=== PATIENT | female | born 1945 | race Caucasian/White ===

== ENCOUNTER → 2017-09-01 | Outpatient (CLI) | payer MEDICARE ==
--- NOTE | 2017-09-02 10:36 | RADIOLOGY REPORT (SQ) ---
EXAM DESCRIPTION: PET CT SKULL/THIGH COMPLETED DATE/TIME: 09/01/2017 9:03 pm REASON FOR STUDY: MALIGNANT NEOPLASM OF SIGMOID COLON C18.7 MALIGNANT NEOPLASM OF SIGMOID COLON COMPARISON: None. RADIONUCLIDE AND DOSE: 10.0 mCi F18 FDG The route of agent administration: Intravenous FASTING BLOOD SUGAR: 92 mg/dl CONTRAST TYPE AND DOSE: No CT contrast given. TECHNIQUE: Blood glucose level was verified. Above dose of FDG was injected intravenously. 2-D seg mented attenuation correction images were obtained from the base of the skull to the midthighs. Nonc ontrast CT images were obtained for attenuation correction and fusion with emission images. CT image s were performed without oral or intravenous contrast and are not sensitive for parenchymal lesions. A series of overlapping emission PET images were obtained. Images reviewed and manipulated at [employer] work station by the radiologist. Images stored on PACS. LIMITATIONS: None. FINDINGS: HEAD AND NECK: No areas of abnormal metabolic activity in the soft tissues of the head and neck. CHEST: No areas of abnormal metabolic activity in the chest. ABDOMEN AND PELVIS: Left adrenal gland enlargement, measuring 2.2 x 2.6 cm. Average Hounsfield units -6. No abnormal activity (mean SUV 1.67). Focal nodular area of activity in the lumen of the gallb ladder posteriorly, mean SUV 5.14. No obvious finding on noncontrast CT. Irregular focal circumfere ntial wall thickening of the proximal sigmoid colon in the left lower quadrant. Focal areas of incre ased activity, mean SUV 8.68 and 8.5. PROXIMAL LOWER EXTREMITIES: No areas of abnormal metabolic activity in the soft tissues of the lower extremities. BONES: No abnormal metabolic activity in the visualized skeleton. ADDITIONAL CT FINDINGS: Nonobstructing calculi in the left kidney. Colonic diverticulosis. No addit ional significant findings on the noncontrast CT images. OTHER: Background hepatic activity mean SUV 2.17. Background blood pool activity mean SUV 1.57. No other significant findings. IMPRESSION: 1. CIRCUMFERENTIAL BOWEL WALL THICKENING INVOLVING PROXIMAL SIGMOID COLON WITH FOCAL AREAS OF INCREAS ED ACTIVITY, MOST CONSISTENT WITH MALIGNANCY, ALTHOUGH DIVERTICULITIS MAY BE POSSIBLE. 2. FOCAL NODULAR AREA OF ACTIVITY IN THE LUMEN OF THE GALLBLADDER. NO OBVIOUS FINDING ON NONCONTRAST CT. RECOMMEND FOLLOW-UP ULTRASOUND OF THE GALLBLADDER. 3. LEFT ADRENAL GLAND ENLARGEMENT WITH LOW-ATTENUATION AND NO ABNORMAL ACTIVITY, PROBABLY AN ADRENAL ADENOMA. 4. NO OTHER SIGNIFICANT FINDINGS ON PET IMAGING. INCIDENTAL CT FINDINGS ABOVE. TECHNICAL DOCUMENTATION: JOB ID: [id number] [employer]- All Rights Reserved Reading location - IP/workstation name: [email or web address] TECHNICIAN-[email or web address]
== END ==
LOC: RAD 17:58
PROVIDERS: ATTEND Physician Assistant
DX: C18.7 Malignant neoplasm of sigmoid colon (principal); E27.8 Other specified disorders of adrenal gland
CPT/HCPCS: 78815; A9552

== ENCOUNTER 2017-09-18 01:05 | Inpatient (IN) | payer MEDICARE ==
[2017-09-18] MEDS ORDERED: IPRATROPIUM/ALBUTEROL 0.5-2.5 MG/3 ML AMPUL NEB ONE ×2 (01:39→16:11)
--- NOTE | 2017-09-18 01:39 | ER Document Report ---
ED GI Bleed / Rectal Pain - General Mode of Arrival: Medic Information source: Patient TRAVEL OUTSIDE OF THE [place] IN LAST 30 DAYS: No <ANJUM NDIAYE - Last Filed: 09/18/17 02:17> <GUERITA LAWTON - Last Filed: 09/18/17 03:46> - General Chief Complaint: Rectal Bleeding Stated Complaint: RECTAL BLEEDING Time Seen by Provider: 09/18/17 01:24 Notes: Patient is a 72 year old female with COPD, HTN, arthritis and chronic back pain presents to the emergency department complaining of bloody stools onset prior to arrival to the emergency department. Patient states she had constant diarrhea for approximately 1 week and went to her primary care for outpatient CT scan. CT scan showed the patient had colon cancer and she was sent to the emergency department on September 01, 2017 for a PET scan. 2 weeks ago, patient was seen by Dr. Herrera for a colonoscopy where 9 polyps were removed. Patient states she has been feeling generally weak with an decreased appetite since her colonoscopy and today she noted bright red blood with clots in her stool so she proceeded to call EMS. At bedside patient states she still feels weak and has a little suprapubic abdominal pain. EMS states patient had a blood pressure of 85/69 and proceeded to give 1g of TXA and iv fluids after calling the ED. (ANJUM NDIAYE) Past Medical History - General Information source: Patient - Social History Smoking Status: Current Every Day Smoker Cigarette use (# per day): Yes Chew tobacco use (# tins/day): No Smoking Education Provided: No Frequency of alcohol use: Occasional Drug Abuse: None Family History: Reviewed & Not Pertinent - Past Medical History Cardiac Medical History: Reports: Hx Hypertension Pulmonary Medical History: Reports: Hx COPD <ANJUM NDIAYE - Last Filed: 09/18/17 02:17> Review of Systems - Review of Systems Constitutional: See HPI, Weakness EENT: No symptoms reported Cardiovascular: No symptoms reported Respiratory: No symptoms reported Gastrointestinal: See HPI, Abdominal pain, Poor appetite, Rectal bleeding Genitourinary: No symptoms reported Female Genitourinary: No symptoms reported Musculoskeletal: No symptoms reported Skin: No symptoms reported Hematologic/Lymphatic: No symptoms reported Neurological/Psychological: No symptoms reported -: Yes All other systems reviewed and negative <ANJUM NDIAYE - Last Filed: 09/18/17 02:17> Physical Exam - General General appearance: Alert, Other - Cachetic In distress: None - HEENT Head: Normocephalic, Atraumatic Eyes: Normal Conjunctiva: Normal Extraocular movements intact: Yes Neck: Normal - Respiratory Respiratory status: No respiratory distress Chest status: Nontender Breath sounds: Rhonchi, Wheezing Chest palpation: Normal - Cardiovascular Rhythm: Regular Heart sounds: Normal auscultation Murmur: No Friction rub: No Gallop: None auscultated - Abdominal Inspection: Normal Distension: No distension Bowel sounds: Normal Tenderness: Tender - Suprapubic Organomegaly: No organomegaly - Rectal Tenderness: No Stool: Other - Maroon appearing blood - Back Back: Normal - Extremities General upper extremity: Normal ROM General lower extremity: Normal ROM - Neurological Neuro grossly intact: Yes Cognition: Normal Orientation: AAOx4 [place] Coma Scale Eye Opening: Spontaneous [place] Coma Scale Verbal: Oriented Evangelina Coma Scale Motor: Obeys Commands [place] Coma Scale Total: 15 Speech: Normal - Psychological Associated symptoms: Normal affect, Normal mood - Skin Skin Temperature: Warm Skin Moisture: Dry Skin Color: Normal <ANJUM NDIAYE - Last Filed: 09/18/17 02:17> - Vital signs Vitals: Temp Pulse Resp BP Pulse Ox 97.6 F 90 20 101/62 97 09/18/17 01:05 09/18/17 01:05 09/18/17 01:05 09/18/17 01:05 09/18/17 01:05 Course - Laboratory Result Diagrams: 09/18/17 01:40 09/18/17 01:40 <SENTHILANJUM - Last Filed: 09/18/17 02:17> - Laboratory Result Diagrams: 09/18/17 01:40 09/18/17 01:40 - EKG Interpretation by In EKG shows normal: Sinus rhythm, [place], Intervals, QRS Complexes, ST-T Waves Rate: Normal - 60 Rhythm: NSR - Consults Dr. Rodriguez Time consulted: 02:50 Consulted provider: will come to ER Dr. Cassidy Time consulted: 02:55 Consulted provider: will see as inpatient <GUERITA LAWTON - Last Filed: 09/18/17 03:46> - Vital Signs Vital signs: Temp Pulse Resp BP Pulse Ox 97.6 F 90 20 101/62 97 09/18/17 01:05 09/18/17 01:05 09/18/17 01:05 09/18/17 01:05 09/18/17 01:05 - Laboratory Laboratory results interpreted by me: 09/18/17 09/18/17 09/18/17 01:40 01:40 02:12 WBC 13.4 H Hgb 11.7 L Hct 35.9 L RDW 14.8 H Monocytes % (Manual) 2 L Abs Neuts (Manual) 9.2 H Sodium 148.4 H Chloride 110 H BUN 26 H Est GFR (Non-Af Amer) 54 L Glucose 175 H Calcium 11.1 H Creatine Kinase 22 L Total Protein 6.2 L Urine Protein 100 H Urine Blood LARGE H Critical Care Note - Critical Care Note Total time excluding time spent on procedures (mins): 35 <GUERITA LAWTON - Last Filed: 09/18/17 03:46> Discharge <ANJUM NDIAYE - Last Filed: 09/18/17 02:17> - Discharge Admitting Provider: Hospitalist Unit Admitted: IMCU <GUERITA LAWTON - Last Filed: 09/18/17 03:46> - Discharge Clinical Impression: Rectal bleeding Hypotension Qualifiers: Hypotension type: unspecified hypotension type Qualified Code(s): I95.9 - Hypotension, unspecified Colon cancer Qualifiers: Colon location: sigmoid Qualified Code(s): C18.7 - Malignant neoplasm of sigmoid colon Condition: Fair Disposition: ADMITTED INPATIENT Scribe Attestation: 09/18/17 02:08 I personally performed the services described in the documentation, reviewed and edited the documentation which was dictated to the scribe in my presence, and it accurately records my words and actions. (GUERITA LAWTON) Scribe Documentation - Scribe Written by Kiera:: Kiera Staples, 09/18/2017 02:04 acting as scribe for :: Kennedy <ANJUM NDIAYE - Last Filed: 09/18/17 02:17>
[2017-09-18 02:10] LABS: HEMATOCRIT 35.9 % (36.0-47.0); HEMOGLOBIN 11.7 g/dL (12.0-15.5); INTERNATIONAL RATION (INR) 1.01; MEAN CORPUSCULAR HEMOGLOBIN 27.4 pg (27.0-33.4); MEAN CORPUSCULAR HGB CONC 32.6 g/dL (32.0-36.0); MEAN CORPUSCULAR VOLUME 84 fl (80-97); PLATELET COUNT 440 10^3/uL (150-450); PROTHROMBIN TIME 13.8 SEC (11.4-15.4); RED BLOOD COUNT 4.27 10^6/uL (3.72-5.28); RED CELL DISTRIBUTION WIDTH 14.8 % (11.5-14.0); WHITE BLOOD COUNT 13.4 10^3/uL (4.0-10.5)
[2017-09-18 02:26] LABS: ALANINE AMINOTRANSFERASE 18 U/L (9-52); ALBUMIN 3.6 g/dL (3.5-5.0); ALKALINE PHOSPHATASE 57 U/L (38-126); ANION GAP 10 (5-19); ASPARTATE AMINO TRANSFERASE 16 U/L (14-36); BILIRUBIN,DIRECT 0.2 mg/dL (0.0-0.4); BILIRUBIN,TOTAL 0.2 mg/dL (0.2-1.3); BLOOD UREA NITROGEN 26 mg/dL (7-20); CALCIUM 11.1 mg/dL (8.4-10.2); CARBON DIOXIDE 28 mmol/L (22-30); CHLORIDE 110 mmol/L (98-107); CREATINE KINASE 22 U/L (30-135); GLUCOSE 175 mg/dL (75-110); POTASSIUM 4.7 mmol/L (3.6-5.0); SODIUM 148.4 mmol/L (137-145); TOTAL PROTEIN 6.2 g/dL (6.3-8.2)
[2017-09-18 02:32] LABS: ABSOLUTE LYMPHOCYTES# (MANUAL) 3.6 10^3/uL (0.5-4.7); ABSOLUTE MONOCYTES # (MANUAL) 0.3 10^3/uL (0.1-1.4); ABSOLUTE NEUTROPHILS# (MANUAL) 9.2 10^3/uL (1.7-8.2); BAND NEUTROPHILS % (MANUAL) 3 % (3-5); BASOPHILS % (MANUAL) 0 % (0-2); EOSINOPHILS % (MANUAL) 2 % (0-6); LYMPHOCYTES % (MANUAL) 27 % (13-45); MONOCYTES % (MANUAL) 2 % (3-13); SEGMENTED NEUTROPHILS % (MAN) 66 % (42-78); TOTAL CELLS COUNTED 100
[2017-09-18 02:33] LABS: PLATELET CLUMPS PRESENT; PLATELET COMMENT ADEQUATE
[2017-09-18 02:35] LABS: ANISOCYTOSIS SLIGHT; HYPOCHROMASIA SLIGHT; POIKILOCYTOSIS SLIGHT; STOMATOCYTES SLIGHT
[2017-09-18] MEDS ORDERED: NORMAL SALINE 1000 ML 250 ML IV ONE (03:02)
[2017-09-18 03:35] LABS: AMORPHOUS SEDIMENT,URINE TRACE /HPF; APPEARANCE,URINE CLOUDY; BILIRUBIN,URINE NEGATIVE (NEGATIVE); COLOR,URINE AMBER; GLUCOSE, URINE NEGATIVE (NEGATIVE); KETONES,URINE NEGATIVE (NEGATIVE); LEUKOCYTE ESTERASE,URINE NEGATIVE (NEGATIVE); NITRITE,URINE NEGATIVE (NEGATIVE); PROTEIN,URINE 100 mg/dL (NEGATIVE); UROBILINOGEN,URINE NEGATIVE mg/dL (<2.0)
--- NOTE | 2017-09-18 03:48 | RADIOLOGY REPORT (SQ) ---
EXAM DESCRIPTION: XR CHEST 1 VIEW COMPLETED DATE/TME: 09/18/2017 03:01 CLINICAL HISTORY: 72 years Female, Rectal bleeding, hypotension, COPD COMPARISON: None. NUMBER OF VIEWS/TECHNIQUE: 1/AP FINDINGS: Moderate emphysematous hyperinflation, clear parenchyma, normal cardiac silhouette, atherosclerosis, and intact bony thorax. IMPRESSION: No acute cardiopulmonary findings.
[2017-09-18] MEDS ORDERED: ACETAMINOPHEN 325 MG TABLET PO PRN (04:21)
[2017-09-18] MEDS ORDERED: ONDANSETRON HCL INJ/PF 4 MG/2 ML SDV IV PRN (04:21)
--- NOTE | 2017-09-18 04:35 | PDOC H&P ---
History of Present Illness Admission Date/PCP: 09/18/17 03:20 HITESH TOMLINSON PA-C Patient complains of: Bright red blood per rectum History of Present Illness: KASIA LÓPEZ is a 72 year old female with a past medical history of COPD, DVT, tobacco dependence, hypertension, osteoarthritis, weight loss and recent workup for colon cancer. Patient presents with sudden episode of large-volume bright red blood per rectum receiving TXA by EMS without further bleeding. Denying previous episode, fever chills, abdominal pain constipation or hard stools. In the emergency room she is found to have an unremarkable CBC and referred to the hospitalist for admission. Patient underwent CT abdomen 4 weeks ago concerning for colon cancer followed by PET scan followed by colonoscopy by Dr. Herrera with biopsy and polypectomy. Results are pending, patient has not yet had oncology referral. Continues to complain of mild suprapubic and left lower quadrant pain. She is typed and screened 2 units of packed red blood cells and referred to the hospitalist for admission. Past Medical History Cardiac Medical History: Reports: Hypertension Pulmonary Medical History: Reports: Chronic Obstructive Pulmonary Disease (COPD) Past Surgical History Past Surgical History: Reports: Appendectomy Social History Information Source: Patient Smoking Status: Current Every Day Smoker Cigarettes Packs Per Day: 0.5 Number of Years Smokin Hx Recreational Drug Use: No Drugs: None - Advance Directive Resuscitation Status: Full Code Family History Family History: CAD. denies: Malignancy Parental Family History Reviewed: Yes Children Family History Reviewed: Yes Sibling(s) Family History Reviewed.: Yes Review of Systems Constitutional: PRESENT: anorexia, fatigue, weakness, weight loss. ABSENT: headache(s), night sweats Eyes: ABSENT: visual disturbances Ears: ABSENT: hearing changes Cardiovascular: ABSENT: chest pain, dyspnea on exertion, edema, orthropnea, palpitations Respiratory: PRESENT: cough. ABSENT: dyspnea, hemoptysis, sputum Gastrointestinal: PRESENT: as per HPI, diarrhea. ABSENT: constipation Genitourinary: ABSENT: dysuria, hematuria Musculoskeletal: ABSENT: joint swelling Integumentary: ABSENT: rash, wounds Neurological: ABSENT: abnormal gait, abnormal speech, confusion, dizziness, focal weakness, syncope Psychiatric: ABSENT: anxiety, depression, homidical ideation, suicidal ideation Endocrine: ABSENT: cold intolerance, heat intolerance, polydipsia, polyuria Hematologic/Lymphatic: ABSENT: easy bleeding, easy bruising Physical Exam Vital Signs: Temp Pulse Resp BP Pulse Ox 97.6 F 90 32 H 106/66 97 09/18/17 01:05 09/18/17 01:05 09/18/17 04:00 09/18/17 04:00 09/18/17 04:00 General appearance: PRESENT: cooperative, mild distress, thin. ABSENT: morbidly obese Head exam: PRESENT: atraumatic, normocephalic Eye exam: PRESENT: conjunctiva pink, EOMI, PERRLA. ABSENT: scleral icterus Ear exam: PRESENT: normal external ear exam Mouth exam: PRESENT: moist, tongue midline Neck exam: ABSENT: carotid bruit, JVD, lymphadenopathy, thyromegaly Respiratory exam: PRESENT: clear to auscultation mirna. ABSENT: rales, rhonchi, wheezes Cardiovascular exam: PRESENT: RRR. ABSENT: diastolic murmur, rubs, systolic murmur Pulses: PRESENT: normal dorsalis pedis pul Vascular exam: PRESENT: normal capillary refill GI/Abdominal exam: PRESENT: hypoactive bowel sounds, soft, tenderness. ABSENT: distended, firm Rectal exam: PRESENT: deferred Extremities exam: PRESENT: full ROM. ABSENT: calf tenderness, clubbing, pedal edema Neurological exam: PRESENT: alert, awake, oriented to person, oriented to place , oriented to time, oriented to situation, CN II-XII grossly intact. ABSENT: motor sensory deficit Psychiatric exam: PRESENT: appropriate affect, normal mood. ABSENT: homicidal ideation, suicidal ideation Skin exam: PRESENT: dry, intact, warm. ABSENT: cyanosis, rash Results Impressions: Chest X-Ray 09/18/17 03:01 IMPRESSION: No acute cardiopulmonary findings. Assessment & Plan - Diagnosis (1) Colon cancer Qualifiers: Colon location: sigmoid Qualified Code(s): C18.7 - Malignant neoplasm of sigmoid colon Is this a current diagnosis for this admission?: Yes Plan: Obtain biopsy results from Dr. lopez's office, oncology consult (2) Hypotension Qualifiers: Hypotension type: unspecified hypotension type Qualified Code(s): I95.9 - Hypotension, unspecified Is this a current diagnosis for this admission?: Yes Plan: IV fluid challenge, reevaluate chemistry. (3) Rectal bleeding Is this a current diagnosis for this admission?: Yes Plan: Avoid TXA given history of DVT. Follow-up CBC, transfuse packed red blood cells as needed hemoglobin less than 8 - Time Time Spent: 50 to 70 Minutes - Inpatient Certification Medical Necessity: Need Close Monitoring Due to Risk of Patient Decompensation
[2017-09-18] MEDS: HEPARIN SOD (PORCINE) 5,000 UNIT/ML 1 ML SYRINGE SUBCUT SCH ×2 (06:00→14:29)
--- NOTE | 2017-09-18 07:09 | PDOC CONSULTATION ---
Consultation Consult Date: 09/18/17 Attending physician:: JONELLE HDEZ Consult reason:: possible colon cancer History of Present Illness Admission Date/PCP: 09/18/17 03:20 HITESH TOMLINSON PA-C History of Present Illness: KASIA LÓPEZ is a 72 year old female Patient of Dr Herrera, presented to ED with possible bright red blood per rectum noted blood in the stools. had recent colonoscopy where it might have been noted that she has sigmoid lesion biopsies were obtained but not able to get any confirmed pathology she was sent for possible CT-PET scan patient had not been referred to Oncology as yet also had polypectomy done during that colonoscopy saw some bright red blood per rectum patient's Hgb is stable and vitals are stable as well admitted by Hospitalist service Dr Herrera continues to have privileges at [facility], but ED did not contact him I do not cover for him. get previous work up that has been performed patient's H/H will need to be monitored will get results from previous colonoscopy, PET scan etc go from there, will monitor for possible post polypectomy bleeding Past Medical History Cardiac Medical History: Reports: Hypertension Pulmonary Medical History: Reports: Chronic Obstructive Pulmonary Disease (COPD) Past Surgical History Past Surgical History: Reports: Appendectomy Social History Smoking Status: Current Every Day Smoker Cigarettes Packs Per Day: 0.5 Number of Years Smokin Hx Recreational Drug Use: No Drugs: None - Advance Directive Resuscitation Status: Full Code Family History Family History: CAD. denies: Malignancy Parental Family History Reviewed: Yes Children Family History Reviewed: Unknown Sibling(s) Family History Reviewed.: Unknown Medication/Allergy Allergies/Adverse Reactions: No Known Allergies Allergy (Unverified 09/18/17 06:11) Review of Systems Constitutional: ABSENT: fever(s), headache(s), night sweats, weakness Eyes: ABSENT: visual disturbances Ears: ABSENT: hearing changes Nose, Mouth, and Throat: ABSENT: mouth pain, sore throat Cardiovascular: ABSENT: edema, orthropnea Respiratory: ABSENT: dyspnea, hemoptysis Gastrointestinal: PRESENT: hematochezia. ABSENT: dysphagia, hematemesis Genitourinary: ABSENT: dysuria, hematuria Musculoskeletal: ABSENT: deformity, joint swelling Integumentary: ABSENT: pruritus Neurological: ABSENT: syncope, tingling, tremor(s), vertigo Endocrine: ABSENT: polydipsia, polyphagia, polyuria Hematologic/Lymphatic: ABSENT: easy bruising Physical Exam Vital Signs: Temp Pulse Resp BP Pulse Ox 97.6 F 90 18 103/62 97 09/18/17 01:05 09/18/17 01:05 09/18/17 06:30 09/18/17 06:30 09/18/17 06:30 General appearance: PRESENT: no acute distress, well-developed Head exam: PRESENT: atraumatic, normocephalic Eye exam: PRESENT: EOMI, PERRLA. ABSENT: nystagmus, periorbital swelling, scleral icterus Mouth exam: PRESENT: moist, neck supple Throat exam: ABSENT: tonsillar exudate, tonsillogmegaly Neck exam: ABSENT: meningismus, tenderness, thyromegaly Respiratory exam: PRESENT: symmetrical, unlabored. ABSENT: tachypnea, wheezes Cardiovascular exam: PRESENT: RRR, +S1, +S2 GI/Abdominal exam: PRESENT: soft. ABSENT: rebound, rigid, tenderness Extremities exam: ABSENT: joint swelling Musculoskeletal exam: PRESENT: full ROM Neurological exam: PRESENT: alert, awake, oriented to time, oriented to situation, CN II-XII grossly intact Focused psych exam: ABSENT: restlessness Skin exam: PRESENT: normal color. ABSENT: mottled, pallor, urticaria, vesicles Results Impressions: Chest X-Ray 09/18/17 03:01 IMPRESSION: No acute cardiopulmonary findings. Assessment & Plan - Diagnosis (1) Colon cancer Qualifiers: Colon location: sigmoid Qualified Code(s): C18.7 - Malignant neoplasm of sigmoid colon Is this a current diagnosis for this admission?: Yes Plan: will need to get recent biopsy report and pathology get recent scan results as well refer Oncology and may need surgery as well (2) Rectal bleeding Is this a current diagnosis for this admission?: Yes Plan: could be from hemorrhoids watch for post polypectomy bleeding as well monitor H/H will follow while at [facility], will need outpatient follow up with Dr Herrera - Time Time Spent: 50 to 70 Minutes
[2017-09-18 07:33] LABS: HEMATOCRIT 29.3 % (36.0-47.0); MEAN CORPUSCULAR HEMOGLOBIN 28.5 pg (27.0-33.4); MEAN CORPUSCULAR HGB CONC 34.2 g/dL (32.0-36.0); MEAN CORPUSCULAR VOLUME 84 fl (80-97); PLATELET COUNT 350 10^3/uL (150-450); RED BLOOD COUNT 3.51 10^6/uL (3.72-5.28); RED CELL DISTRIBUTION WIDTH 14.6 % (11.5-14.0); WHITE BLOOD COUNT 8.1 10^3/uL (4.0-10.5)
[2017-09-18 07:51] LABS: ALANINE AMINOTRANSFERASE 15 U/L (9-52); ALBUMIN 2.8 g/dL (3.5-5.0); ALKALINE PHOSPHATASE 47 U/L (38-126); ANION GAP 7 (5-19); ASPARTATE AMINO TRANSFERASE 12 U/L (14-36); BILIRUBIN,DIRECT 0.2 mg/dL (0.0-0.4); BILIRUBIN,TOTAL 0.2 mg/dL (0.2-1.3); BLOOD UREA NITROGEN 27 mg/dL (7-20); CALCIUM 10.4 mg/dL (8.4-10.2); CARBON DIOXIDE 27 mmol/L (22-30); CHLORIDE 112 mmol/L (98-107); GLUCOSE 124 mg/dL (75-110); POTASSIUM 4.8 mmol/L (3.6-5.0); SODIUM 146.4 mmol/L (137-145); TOTAL PROTEIN 5.1 g/dL (6.3-8.2)
[2017-09-18] MEDS: IPRATROPIUM/ALBUTEROL 0.5-2.5 MG/3 ML AMPUL NEB SCH ×3 (08:02→23:46)
--- NOTE | 2017-09-18 09:40 | EKG REPORT ---
SEVERITY:- NORMAL ECG - SINUS RHYTHM : Confirmed by: Bharti Saba 18-Sep-2017 09:39:33
[2017-09-18] MEDS: NORMAL SALINE 1000 ML 1,000 ML IV SCH ×3 (10:00→21:07)
[2017-09-18 12:04] LABS: HEMATOCRIT 26.2 % (36.0-47.0); HEMOGLOBIN 8.9 g/dL (12.0-15.5); MEAN CORPUSCULAR HEMOGLOBIN 28.5 pg (27.0-33.4); MEAN CORPUSCULAR VOLUME 84 fl (80-97); PLATELET COUNT 333 10^3/uL (150-450); RED BLOOD COUNT 3.12 10^6/uL (3.72-5.28); RED CELL DISTRIBUTION WIDTH 14.7 % (11.5-14.0); WHITE BLOOD COUNT 6.5 10^3/uL (4.0-10.5)
[2017-09-18] MEDS ORDERED: POLYETHYLENE GLYCOL 3350 POWDER 17 GM/1 PACKET PO ONE (12:53)
--- NOTE | 2017-09-18 13:00 | Progress Note ---
Provider Note Provider Note: Hgb noted to have decreased I had spoken to the patient, since may be continuing to have bleeding she had her colonoscopy about 2 weeks ago, so post polypectomy bleeding is less likely from her history, it could be diverticular vs even upper GI since she was symptomatic on presentation may be ablating, but would benefit from evaluation will schedule EGD and colonoscopy with Propofol sedation prep instructions are written
[2017-09-18] MEDS ORDERED: TIZANIDINE HCL 4 MG TABLET PO PRN (13:01)
[2017-09-18] MEDS: GABAPENTIN 300 MG CAPSULE PO SCH ×2 (14:43→21:08)
[2017-09-18 16:26] LABS: HEMATOCRIT 25.7 % (36.0-47.0); HEMOGLOBIN 8.7 g/dL (12.0-15.5); MEAN CORPUSCULAR HGB CONC 33.6 g/dL (32.0-36.0); MEAN CORPUSCULAR VOLUME 83 fl (80-97); PLATELET COUNT 327 10^3/uL (150-450); RED CELL DISTRIBUTION WIDTH 14.6 % (11.5-14.0); WHITE BLOOD COUNT 6.8 10^3/uL (4.0-10.5)
[2017-09-18] MEDS ORDERED: PEG 3350/NA SULF,BICARB,CL/KCL 4000 ML PO ONE (17:00)
[2017-09-18] MEDS: FLUTICASONE/SALMETEROL DISKUS 250-50 MCG/DOSE IH SCH (17:13)
--- NOTE | 2017-09-18 22:16 | Progress Note ---
Provider Note Provider Note: The patient is a 72 year old female with PMH significant for COPD, DVT, tobacco dependence, hypertension, osteoarthritis, weight loss and recent workup for colon cancer (pathology pending) who was admitted by the Senior Analyst for an episode of large-volume bright red blood per rectum with suprapubic and LLQ abdominal pain. The patient's chart, labs, and plan were reviewed; agree with plan of care as initiated. 1- Colon CA: Records have been requested regarding recent colonoscopy/ polypectomy and pathology results. Oncology has been consulted; appreciate their assistance. 2- Hypotension: Possibly related to intravascular volume loss (although Hgb as nml at time of admission) or vasovagal response. Provided IV fluids with appropriate response. Will continue to monitor fluid volume status and correct as necessary. Home-dosed antihypertensives are resumed. 3- Rectal blooding: Monitor serial CBC. Patient has been typed and screened; will transfuse as necessary for Hgb <8. Holding aspirin and Heparin prophylaxis. GI has been consulted; appreciate their assistance.
[2017-09-18 22:32] LABS: HEMATOCRIT 26.2 % (36.0-47.0); MEAN CORPUSCULAR HEMOGLOBIN 28.7 pg (27.0-33.4); MEAN CORPUSCULAR HGB CONC 34.2 g/dL (32.0-36.0); MEAN CORPUSCULAR VOLUME 84 fl (80-97); PLATELET COUNT 335 10^3/uL (150-450); RED BLOOD COUNT 3.13 10^6/uL (3.72-5.28); RED CELL DISTRIBUTION WIDTH 14.7 % (11.5-14.0); WHITE BLOOD COUNT 6.9 10^3/uL (4.0-10.5)
[2017-09-19 05:15] LABS: HEMATOCRIT 23.5 % (36.0-47.0); MEAN CORPUSCULAR HEMOGLOBIN 28.1 pg (27.0-33.4); MEAN CORPUSCULAR HGB CONC 33.8 g/dL (32.0-36.0); MEAN CORPUSCULAR VOLUME 83 fl (80-97); PLATELET COUNT 301 10^3/uL (150-450); RED BLOOD COUNT 2.83 10^6/uL (3.72-5.28); RED CELL DISTRIBUTION WIDTH 14.6 % (11.5-14.0); WHITE BLOOD COUNT 5.4 10^3/uL (4.0-10.5)
[2017-09-19] MEDS: GABAPENTIN 300 MG CAPSULE PO SCH ×3 (05:22→21:48)
[2017-09-19 06:14] LABS: ABSOLUTE LYMPHOCYTES# (MANUAL) 2.3 10^3/uL (0.5-4.7); ABSOLUTE MONOCYTES # (MANUAL) 0.4 10^3/uL (0.1-1.4); ABSOLUTE NEUTROPHILS# (MANUAL) 2.3 10^3/uL (1.7-8.2); BASOPHILS % (MANUAL) 4 % (0-2); EOSINOPHILS % (MANUAL) 5 % (0-6); LYMPHOCYTES % (MANUAL) 42 % (13-45); MONOCYTES % (MANUAL) 7 % (3-13); SEGMENTED NEUTROPHILS % (MAN) 41 % (42-78); TOTAL CELLS COUNTED 100
[2017-09-19 06:18] LABS: ANISOCYTOSIS SLIGHT; HYPOCHROMASIA 1+; PLATELET COMMENT ADEQUATE
[2017-09-19 06:20] LABS: MYELOCYTES % (MANUAL) 1 % (0)
[2017-09-19] MEDS: IPRATROPIUM/ALBUTEROL 0.5-2.5 MG/3 ML AMPUL NEB SCH ×2 (08:23→16:20)
[2017-09-19] MEDS: FLUTICASONE/SALMETEROL DISKUS 250-50 MCG/DOSE IH SCH ×2 (09:27→17:23)
[2017-09-19 09:34] LABS: PATH REVIEW PATHOLOGIST REVIEWED
[2017-09-19] MEDS ORDERED: AMLODIPINE BESYLATE 10 MG TABLET PO SCH (10:00)
[2017-09-19] MEDS: AMLODIPINE BESYLATE 5 MG TABLET PO SCH (10:52)
[2017-09-19] MEDS ORDERED: MIDAZOLAM 2 MG/2 ML INJ ONE (13:54)
[2017-09-19] MEDS ORDERED: PROPOFOL INJ 200 MG/20 ML VIAL IV ONE (13:54)
[2017-09-19] MEDS ORDERED: FENTANYL CITRATE INJ/PF 100 MCG/2 ML AMPUL IV PRN ×3 (14:16)
--- NOTE | 2017-09-19 14:51 | Operative Report ---
Operative Report DATE OF SURGERY: 09/19/17 Operative Report: The risks, benefits and alternatives of the procedure including risks of bleeding, perforation requiring surgery are explained to the patient in detail and informed consent is obtained. The patient is placed in a left, lateral decubital position. She is taken to the operating room. Timeout was called. Propofol medications administered. A rectal examination is done which did not reveal any masses, tears or fissures. An Olympus videoscope was inserted the patient's rectum. The scope was then carefully advanced all the way to the cecum. The cecum was identified by the usual anatomical landmarks including the ileocecal valve as well as the appendiceal office. Photodocumentation is obtained. The scope was then sequentially pulled back via the various segments of the colon including the ascending colon, hepatic flexure, transverse colon, splenic flexure, descending colon and finally into the rectosigmoid portions of the colon. Retroflexion maneuvers performed. Of note the patient's colon is hard to insufflate combination of carbon dioxide along with a insufflation was used. The risks benefits and alternatives of the procedure explained to the patient in detail and informed consent is obtained.A GIF Olympus video scope was inserted into the patient's mouth and hypopharynx ,the esophagus is identified intubated and insufflated, the scope was then advanced through the esophagus stomach and duodenum. retroflexion maneuver is done .the esophagus stomach and first and second portions of the duodenum examined PREOPERATIVE DIAGNOSIS: GI bleeding. Patient had had a colonoscopy approximately a month ago. She was diagnosed with some kind of sigmoid lesion. POSTOPERATIVE DIAGNOSIS: Ulcerated area in the descending colon believed to be a post polypectomy site status post Endo Clip placement. Diverticulosis. Severe sigmoid diverticulosis. Large pedunculated polyp, the area is tattooed. Internal hemorrhoids. Esophageal papilloma. Gastritis status post biopsy. Hiatal hernia. No further upper or lower GI bleeding noted OPERATION: Colonoscopy with Endo Clip placement to control hemorrhage. Colonoscopy with submucosal Nichole ink injection. EGD with biopsy SURGEON: JONELLE HDEZ ANESTHESIA: LMAC TISSUE REMOVED OR ALTERED: As noted above. COMPLICATIONS: None. ESTIMATED BLOOD LOSS: None. INTRAOPERATIVE FINDINGS: As noted above. PROCEDURE: Patient tolerated procedure well. No immediate postprocedure complications are noted. Patient sent back to her room in good condition. We will wait on biopsies. I will call the hospitalist advisor findings. Further recommendations to follow.
[2017-09-19 16:51] LABS: HEMATOCRIT 25.2 % (36.0-47.0); HEMOGLOBIN 8.5 g/dL (12.0-15.5); MEAN CORPUSCULAR HGB CONC 33.6 g/dL (32.0-36.0); MEAN CORPUSCULAR VOLUME 83 fl (80-97); PLATELET COUNT 328 10^3/uL (150-450); RED BLOOD COUNT 3.02 10^6/uL (3.72-5.28); RED CELL DISTRIBUTION WIDTH 14.5 % (11.5-14.0); WHITE BLOOD COUNT 4.9 10^3/uL (4.0-10.5)
[2017-09-19] MEDS ORDERED: DEXTROSE 50%-WATER 25 GM/50 ML DISP.SYRIN IV PRN ×2 (17:03)
[2017-09-19] MEDS ORDERED: DEXTROSE 40% GEL 15 GM TUBE PO PRN ×2 (17:03)
[2017-09-19] MEDS ORDERED: GLUCAGON,HUMAN RECOMB 1 MG INJ SUBCUT PRN (17:03)
[2017-09-19] MEDS ORDERED: NEOMYCIN SULFATE 500 MG TABLET PO ONE (17:15)
[2017-09-19] MEDS ORDERED: ERYTHROMYCIN BASE 250 MG TABLET PO ONE (17:15)
--- NOTE | 2017-09-19 17:16 | Progress Note ---
Provider Note Provider Note: patient underwent colonoscopy patient had Propofol sedation Findings: post polypectomy bleeding site noted, this had placement of Endoclip the area of the sigmoid was noted. on her previous colonoscopy about 1 month ago , it was noted that there could be have been a malignancy however, it appear to be more of a large pedunculated, large based polyp that is present It cannot be removed via colonoscopy I did tattoo the site Surgery has been called spoke with surgery the sigmoid are is hard to insufflate and has significant diveritulosis as well the lesion appears to be at about 20 cm
--- NOTE | 2017-09-19 17:33 | PDOC CONSULTATION ---
Consultation Consult Date: 09/19/17 Consult reason:: sigmoid polyp History of Present Illness Admission Date/PCP: 09/18/17 03:20 HITESH TOMLINSON PA-C History of Present Illness: KASIA LÓPEZ is a 72 year old female who has undergone a repeat colonoscopy today with identification of a large sigmoid polyp at @ 20 cm from the anal verge, this was too large to be endoscopically removed. This polyp was tatooed according to the Endoscopist today. In addition, an old polypectomy site in the descending colon was found to be bleeding and this was controlled with a clip. According to the records and the patient's daughter in law, the patient underwent an initial endoscopy on 09/09/17 done at [facility] on . Nine small polyps ranging from 9 to 16 mm were removed from ascending, hepatic flexure, transverse, and sigmoid colon. The pathology report is significant for: ascending colon significant tubular adenoma negaive for dysplasia or malignancy; hepatic flexure significant for colon mucosa with severe cautery damage; transverse colon significant for tubulovillous adenoma negative for high grade dysplasia; sigmoid colon tubular adenoma negative for neoplasia or dysplasia. Past Medical History Cardiac Medical History: Reports: Hypertension Pulmonary Medical History: Reports: Chronic Obstructive Pulmonary Disease (COPD) Past Surgical History Past Surgical History: Reports: Appendectomy Social History Smoking Status: Current Every Day Smoker Cigarettes Packs Per Day: 0.5 Number of Years Smokin Frequency of Alcohol Use: None Hx Recreational Drug Use: No Drugs: None Hx Prescription Drug Abuse: No - Advance Directive Resuscitation Status: Full Code Family History Family History: CAD. denies: Malignancy Parental Family History Reviewed: No Children Family History Reviewed: No Sibling(s) Family History Reviewed.: No Medication/Allergy Home Medications: Amlodipine Besylate [Norvasc 10 mg Tablet] 5 mg PO DAILY 09/18/17 Aspirin [Aspirin EC] 81 mg PO DAILY 09/18/17 Celecoxib [Celebrex 200 mg Capsule] 200 mg PO Q12 09/18/17 Fluticasone/Salmeterol [Advair 250-50 Diskus 28 dose] 1 inh IH Q12H 09/18/17 Gabapentin [Neurontin] 600 mg PO TID 09/18/17 Multivit/Folic Acid/Vit K1 [One-A-Day Women's 50 Plus Tab] 1 each PO DAILY 09/18 Tizanidine HCl [Zanaflex 4 Mg Tablet] 4 mg PO TIDP PRN 09/18/17 Allergies/Adverse Reactions: No Known Allergies Allergy (Unverified 09/18/17 10:34) Physical Exam Vital Signs: Temp Pulse Resp BP Pulse Ox 97.8 F 70 20 140/65 H 100 09/19/17 15:44 09/19/17 15:44 09/19/17 15:44 09/19/17 15:44 09/19/17 15:44 Intake & Output 09/18/17 09/19/17 09/20/17 06:59 06:59 06:59 Intake Total 2250 5800 Balance 2250 5800 Weight 48.8 kg General appearance: PRESENT: no acute distress, cooperative, thin Head exam: PRESENT: atraumatic Mouth exam: PRESENT: neck supple Respiratory exam: PRESENT: clear to auscultation mirna Cardiovascular exam: PRESENT: RRR GI/Abdominal exam: PRESENT: normal bowel sounds, soft, other - old lowser midline and right paramedian scars Extremities exam: PRESENT: full ROM Musculoskeletal exam: PRESENT: full ROM Neurological exam: PRESENT: alert, oriented to time, oriented to situation Skin exam: PRESENT: warm Results Laboratory Results: 09/19/17 04:05 09/18/17 07:00 09/18/17 09/19/17 22:25 04:05 WBC 6.9 5.4 RBC 3.13 L 2.83 L Hgb 9.0 L 8.0 L Hct 26.2 L 23.5 L MCV 84 83 MCH 28.7 28.1 MCHC 34.2 33.8 RDW 14.7 H 14.6 H Plt Count 335 301 Seg Neutrophils % Not Reportable Lymphocytes % Not Reportable Monocytes % Not Reportable Eosinophils % Not Reportable Basophils % Not Reportable Absolute Neutrophils Not Reportable Absolute Lymphocytes Not Reportable Absolute Monocytes Not Reportable Absolute Eosinophils Not Reportable Absolute Basophils Not Reportable Impressions: Chest X-Ray 09/18/17 03:01 IMPRESSION: No acute cardiopulmonary findings. Assessment & Plan - Diagnosis (1) Colon polyps Qualifiers: Colon polyp type: unspecified Colon location: sigmoid Qualified Code(s): D12.5 - Benign neoplasm of sigmoid colon Is this a current diagnosis for this admission?: Yes (2) Anemia Qualifiers: Iron deficiency anemia type: chronic blood loss Is this a current diagnosis for this admission?: Yes (3) Rectal bleeding Is this a current diagnosis for this admission?: Yes - Plan Summary Plan Summary: A/ S/P colonoscopy with identification of large sigmoid polyp at 20 cm from anal verge today Severe anemia (H/H 11/21) secondary to hematochetia Hematochetia source identified at today's colonoscopy and treated with clipping : it is a sigmoid polypectomy site from previous colonoscopy Previous colonoscopy done at different facility on 09/09/17 with identification of several polyps (ranging from tubular adenoma to tubulovilvous adenoma) completely removed from several segments of the colon (ascending, transverse, and sigmoid colon) P/ Repeat colonoscopy to confirm location of sigmoid polyp tomorrow According to the location of the polyp, possible low anterior resection or left hemicolectomy Procedure, risks, benefits discussed with patient and her daughter in law, their questions were answered, and she decided to proceed. 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
[2017-09-19] MEDS ORDERED: NORMAL SALINE 1000 ML 1,000 ML IV PRN (17:37)
[2017-09-19] MEDS ORDERED: NICOTINE 7 MG/24 HR PATCH.TD24 TD ONE (17:51)
[2017-09-19] MEDS ORDERED: PEG 3350/NA SULF,BICARB,CL/KCL 4000 ML PO ONE (18:00)
[2017-09-19] MEDS ORDERED: IPRATROPIUM/ALBUTEROL 0.5-2.5 MG/3 ML AMPUL NEB PRN (18:18)
[2017-09-19] MEDS: NEOMYCIN SULFATE 500 MG TABLET PO SCH ×2 (18:21→23:09)
--- NOTE | 2017-09-19 18:21 | PDOC PROGRESS REPORT ---
Subjective Progress Note for:: 09/19/17 Subjective:: The patient is a 72-year-old female with a past medical history significant for COPD, DVT, tobacco dependence, hypertension, osteoarthritis, weight loss and recent workup for colon cancer involving outpatient colonoscopy and polypectomy of several colon polyps who was admitted on 09/18/17 for episode of large-volume bright red blood per rectum, left lower quadrant abdominal pain, and anemia. The patient is seen on rounds this morning with her family present. She is currently n.p.o. in preparation for EGD and colonoscopy. She reports that her pain has resolved but she continues to have bright red blood per rectum. She was only able to complete half of her bowel prep overnight due to increased frequency of hematuria. The patient denies fever, chills, chest pain, palpitations, dyspnea, orthopnea, lightheadedness, nausea and vomiting. Reason For Visit: GIB, COLON CA, HYPERCALCEMIA Physical Exam Vital Signs: Temp Pulse Resp BP Pulse Ox 97.8 F 55 L 18 140/65 H 96 09/19/17 15:44 09/19/17 16:20 09/19/17 16:20 09/19/17 15:44 09/19/17 16:20 Intake & Output 09/18/17 09/19/17 09/20/17 06:59 06:59 06:59 Intake Total 2250 5800 Balance 2250 5800 Weight 48.8 kg General appearance: PRESENT: no acute distress, cooperative, thin, well- developed, well-nourished Head exam: PRESENT: atraumatic, normocephalic Eye exam: PRESENT: conjunctiva pink, EOMI, PERRLA. ABSENT: scleral icterus Ear exam: PRESENT: normal external ear exam Mouth exam: PRESENT: moist, tongue midline Neck exam: ABSENT: carotid bruit, JVD, lymphadenopathy, thyromegaly Respiratory exam: PRESENT: clear to auscultation mirna, symmetrical, unlabored. ABSENT: rales, rhonchi, wheezes Cardiovascular exam: PRESENT: RRR, +S1, +S2. ABSENT: diastolic murmur, rubs, systolic murmur Pulses: PRESENT: normal dorsalis pedis pul Vascular exam: PRESENT: normal capillary refill GI/Abdominal exam: PRESENT: normal bowel sounds, soft. ABSENT: distended, guarding, mass, organolmegaly, rebound, tenderness Rectal exam: PRESENT: heme (+) stool Extremities exam: PRESENT: full ROM. ABSENT: calf tenderness, clubbing, pedal edema Neurological exam: PRESENT: alert, awake, oriented to person, oriented to place , oriented to time, oriented to situation, CN II-XII grossly intact. ABSENT: motor sensory deficit Psychiatric exam: PRESENT: appropriate affect, normal mood. ABSENT: homicidal ideation, suicidal ideation Skin exam: PRESENT: dry, intact, warm. ABSENT: cyanosis, rash Results Laboratory Results: 09/19/17 16:10 09/18/17 07:00 09/18/17 09/19/17 09/19/17 22:25 04:05 16:10 WBC 6.9 5.4 4.9 RBC 3.13 L 2.83 L 3.02 L Hgb 9.0 L 8.0 L 8.5 L Hct 26.2 L 23.5 L 25.2 L MCV 84 83 83 MCH 28.7 28.1 28.0 MCHC 34.2 33.8 33.6 RDW 14.7 H 14.6 H 14.5 H Plt Count 335 301 328 Seg Neutrophils % Not Reportable Lymphocytes % Not Reportable Monocytes % Not Reportable Eosinophils % Not Reportable Basophils % Not Reportable Absolute Neutrophils Not Reportable Absolute Lymphocytes Not Reportable Absolute Monocytes Not Reportable Absolute Eosinophils Not Reportable Absolute Basophils Not Reportable Impressions: Chest X-Ray 09/18/17 03:01 IMPRESSION: No acute cardiopulmonary findings. Assessment & Plan - Diagnosis (1) Rectal bleeding Is this a current diagnosis for this admission?: Yes Plan: The patient was admitted to the medical floor on continuous cardiac telemetry. Holding aspirin and Celebrex. She has been typed and crossed; scheduled to receive 4 units PRBC per surgery. GI has been consulted; underwent EGD today with findings of gastritis. Colonoscopy completed at same time with large base polyp that was not amenable to removal. Initiating H2-clarisa; Pepcid per GIs recommendations. Surgery has been consulted; plans to repeat colonoscopy in the operating suite tomorrow with possible conversion to hemicolectomy. We will continue to trend CBC and transfuse as necessary. (2) Anemia Qualifiers: Iron deficiency anemia type: chronic blood loss Is this a current diagnosis for this admission?: Yes Plan: Acute blood loss anemia secondary to lower GI bleed at previous polypectomy site. Patient underwent colonoscopy with clipping for bleeding control. Trending CBC. Patient has been typed and crossed; scheduled to receive transfusion per surgery. Continue gentle IV f maintenance fluids. We will consult the registered dietitian. (3) COPD (chronic obstructive pulmonary disease) Is this a current diagnosis for this admission?: Yes Plan: Without exacerbation. Patient endorses a history of COPD with tobacco use. Continue her home dose Advair. As needed nebulizer treatments. (4) Tobacco dependence Is this a current diagnosis for this admission?: Yes Plan: Smoking cessation is encouraged. Nicotine replacement therapies are provided. (5) Weight loss Is this a current diagnosis for this admission?: Yes Plan: Unclear etiology; biopsies do not appear to be malignant. Undergoing additional colonoscopy tomorrow for large based polyp removal by surgery. We will consult the registered dietitian. (6) Hypotension Qualifiers: Hypotension type: unspecified hypotension type Qualified Code(s): I95.9 - Hypotension, unspecified Is this a current diagnosis for this admission?: Yes Plan: Improved; possibly was related to intravascular volume loss or vasovagal response. She is being supported with gentle maintenance IV fluids. We will continue to monitor fluid volume status and correct as necessary. Home dose antihypertensives will be resumed when appropriate. - Time Time Spent with patient: 15-24 minutes Medications reviewed and adjusted accordingly: Yes Anticipated discharge: Home - Inpatient Certification Medical Necessity: Need For IV Fluids, Need for IV Antibiotics, Need for Surgery
[2017-09-19] MEDS: ERYTHROMYCIN BASE 250 MG TABLET PO SCH ×2 (18:22→23:09)
[2017-09-19] MEDS: FAMOTIDINE 20 MG TABLET PO SCH (21:48)
[2017-09-20] MEDS ORDERED: CEFOXITIN SODIUM 2 GM in DEXTROSE 5%-WATER 100 ML IV PRN (05:00)
[2017-09-20 05:23] LABS: ABSOLUTE EOSINOPHILS # (AUTO) 0.1 10^3/uL (0.0-0.6); ABSOLUTE LYMPHOCYTES (AUTO) 1.9 10^3/uL (0.5-4.7); ABSOLUTE MONOCYTES (AUTO) 0.6 10^3/uL (0.1-1.4); ABSOLUTE NEUT (AUTO) 3.4 10^3/uL (1.7-8.2); BASOPHILS % (AUTO) 0.7 % (0-2); EOSINOPHILS % (AUTO) 2.5 % (0-6); HEMATOCRIT 31.3 % (36.0-47.0); LYMPHOCYTES % (AUTO) 31.3 % (13-45); MEAN CORPUSCULAR HGB CONC 34.8 g/dL (32.0-36.0); MEAN CORPUSCULAR VOLUME 83 fl (80-97); MONOCYTES % (AUTO) 9.7 % (3-13); PLATELET COUNT 298 10^3/uL (150-450); RED BLOOD COUNT 3.75 10^6/uL (3.72-5.28); RED CELL DISTRIBUTION WIDTH 14.6 % (11.5-14.0); SEGMENTED NEUTROPHILS % (AUTO) 55.8 % (42-78); TOTAL CELLS COUNTED % (AUTO) 100 %; WHITE BLOOD COUNT 6.1 10^3/uL (4.0-10.5)
[2017-09-20 05:26] LABS: HEMOGLOBIN 10.9 g/dL (12.0-15.5)
[2017-09-20 05:37] LABS: ANION GAP 9 (5-19); BLOOD UREA NITROGEN 10 mg/dL (7-20); CALCIUM 9.7 mg/dL (8.4-10.2); CARBON DIOXIDE 26 mmol/L (22-30); CHLORIDE 112 mmol/L (98-107); GLUCOSE 65 mg/dL (75-110); POTASSIUM 3.8 mmol/L (3.6-5.0); SODIUM 146.8 mmol/L (137-145)
[2017-09-20] MEDS: GABAPENTIN 300 MG CAPSULE PO SCH ×3 (05:59→21:08)
[2017-09-20] MEDS: FLUTICASONE/SALMETEROL DISKUS 250-50 MCG/DOSE IH SCH ×2 (09:18→17:32)
[2017-09-20] MEDS: AMLODIPINE BESYLATE 5 MG TABLET PO SCH (09:19)
[2017-09-20] MEDS: FAMOTIDINE 20 MG TABLET PO SCH ×2 (09:19→21:08)
[2017-09-20] MEDS: RINGERS SOLUTION,LACTATED 1,000 ML IV PRN ×2 (09:47→19:32)
[2017-09-20] MEDS ORDERED: CEFOXITIN INJ 1 GM VIAL IV ONE (12:00)
--- NOTE | 2017-09-20 12:11 | PDOC PROGRESS REPORT ---
Subjective Progress Note for:: 09/20/17 Subjective:: The patient is a 72-year-old female with a past medical history significant for COPD, DVT, tobacco dependence, hypertension, osteoarthritis, weight loss and recent workup for colon cancer involving outpatient colonoscopy and polypectomy of several colon polyps who was admitted on 09/18/17 for episode of large-volume bright red blood per rectum, left lower quadrant abdominal pain, and anemia. The patient is seen on rounds this morning. She is currently n.p.o. in preparation for repeat colonoscopy and possible transition to hemicolectomy per surgery today. The patient reports that she was able to complete the bowel prep overnight and has noted a decrease in bright red blood per rectum; admitting to occasional pink tinged watery stools. The patient denies fever, chills, chest pain, palpitations, dyspnea, orthopnea, lightheadedness, abdominal pain, nausea and vomiting. Reason For Visit: GIB, COLON CA, HYPERCALCEMIA Physical Exam Vital Signs: Temp Pulse Resp BP Pulse Ox 98.3 F 75 16 144/85 H 97 09/20/17 07:43 09/20/17 10:35 09/20/17 10:35 09/20/17 07:43 09/20/17 10:35 Intake & Output 09/19/17 09/20/17 09/21/17 06:59 06:59 06:59 Intake Total 2250 7450 Balance 2250 7450 Weight 48.8 kg 48.9 kg General appearance: PRESENT: no acute distress, cooperative, thin, well- developed Head exam: PRESENT: atraumatic, normocephalic Eye exam: PRESENT: conjunctiva pink, EOMI, PERRLA. ABSENT: scleral icterus Mouth exam: PRESENT: moist, tongue midline Neck exam: ABSENT: carotid bruit, JVD, lymphadenopathy, thyromegaly Respiratory exam: PRESENT: clear to auscultation mirna, symmetrical, unlabored. ABSENT: rales, rhonchi, wheezes Cardiovascular exam: PRESENT: RRR, +S1, +S2. ABSENT: diastolic murmur, rubs, systolic murmur Pulses: PRESENT: normal dorsalis pedis pul Vascular exam: PRESENT: normal capillary refill GI/Abdominal exam: PRESENT: normal bowel sounds, soft. ABSENT: distended, guarding, mass, organolmegaly, rebound, tenderness Rectal exam: PRESENT: deferred Extremities exam: PRESENT: full ROM. ABSENT: calf tenderness, clubbing, pedal edema Neurological exam: PRESENT: alert, awake, oriented to person, oriented to place , oriented to time, oriented to situation, CN II-XII grossly intact. ABSENT: motor sensory deficit Psychiatric exam: PRESENT: appropriate affect, normal mood. ABSENT: homicidal ideation, suicidal ideation Skin exam: PRESENT: dry, intact, warm. ABSENT: cyanosis, rash Results Laboratory Results: 09/20/17 04:34 09/20/17 04:34 09/19/17 09/20/17 09/20/17 16:10 04:34 04:34 WBC 4.9 6.1 RBC 3.02 L 3.75 Hgb 8.5 L 10.9 L D Hct 25.2 L 31.3 L MCV 83 83 MCH 28.0 29.0 MCHC 33.6 34.8 RDW 14.5 H 14.6 H Plt Count 328 298 Seg Neutrophils % 55.8 Lymphocytes % 31.3 Monocytes % 9.7 Eosinophils % 2.5 Basophils % 0.7 Absolute Neutrophils 3.4 Absolute Lymphocytes 1.9 Absolute Monocytes 0.6 Absolute Eosinophils 0.1 Absolute Basophils 0.0 Sodium 146.8 H Potassium 3.8 Chloride 112 H Carbon Dioxide 26 Anion Gap 9 BUN 10 Creatinine 0.62 Est GFR ( Amer) > 60 Est GFR (Non-Af Amer) > 60 Glucose 65 L Calcium 9.7 Impressions: Chest X-Ray 09/18/17 03:01 IMPRESSION: No acute cardiopulmonary findings. Assessment & Plan - Diagnosis (1) Rectal bleeding Is this a current diagnosis for this admission?: Yes Plan: The patient was admitted to the medical floor on continuous cardiac telemetry. Holding aspirin and Celebrex. Patient has been transfused 2 units PRBC GI has been consulted; underwent EGD yesterday with findings of gastritis. Colonoscopy completed at same time with large base polyp that was not amenable to removal. Initiating H2-clarisa per GIs recommendations. Surgery has been consulted; plans to repeat colonoscopy in the operating suite this afternoon with possible conversion to hemicolectomy. We will continue to trend CBC and transfuse as necessary. Gentle IV fluids while n.p.o. (2) Anemia Qualifiers: Iron deficiency anemia type: chronic blood loss Is this a current diagnosis for this admission?: Yes Plan: Acute blood loss anemia secondary to lower GI bleed at previous polypectomy site. Now s/p 2 units PRBC; Hgb 8.0 --> 10.9 Patient underwent colonoscopy with clipping for bleeding control. Trending CBC; will transfuse as necessary.. Continue gentle IV maintenance fluids. We will consult the registered dietitian. (3) COPD (chronic obstructive pulmonary disease) Is this a current diagnosis for this admission?: Yes Plan: Without exacerbation. Patient endorses a history of COPD with tobacco use. Continue her home dose Advair. As needed nebulizer treatments. (4) Tobacco dependence Is this a current diagnosis for this admission?: Yes Plan: Smoking cessation is encouraged. Nicotine replacement therapies are provided. (5) Weight loss Is this a current diagnosis for this admission?: Yes Plan: Unclear etiology; biopsies do not appear to be malignant. Undergoing additional colonoscopy tomorrow for large based polyp removal by surgery. We will consult the registered dietitian. (6) Hypotension Qualifiers: Hypotension type: unspecified hypotension type Qualified Code(s): I95.9 - Hypotension, unspecified Is this a current diagnosis for this admission?: Yes Plan: Improved; normotensive at present. She is being supported with gentle maintenance IV fluids. We will continue to monitor fluid volume status and correct as necessary. Home dose antihypertensives have been resumed. - Time Time Spent with patient: 15-24 minutes Medications reviewed and adjusted accordingly: Yes - Inpatient Certification Medical Necessity: Need for Surgery
[2017-09-20] MEDS ORDERED: MIDAZOLAM 2 MG/2 ML INJ ONE (12:19)
[2017-09-20] MEDS ORDERED: FENTANYL CITRATE INJ/PF 250 MCG/5 ML AMPULE ONE (12:20)
[2017-09-20] MEDS ORDERED: EPHEDRINE SULFATE INJ 50 MG/1 ML AMPULE ONE (12:20)
[2017-09-20] MEDS ORDERED: KETAMINE HCL INJ 500 MG/10 ML VIAL ONE (12:20)
[2017-09-20] MEDS ORDERED: PROPOFOL INJ 200 MG/20 ML VIAL IV ONE (12:20)
[2017-09-20] MEDS ORDERED: BUPIVACAINE HCL 0.5%-EPI 1:200000 INJ/PF 30 ML VIAL ONE (12:47)
[2017-09-20] MEDS ORDERED: BUPIVACAINE INJ/PF LIPOSOME/PF 266 MG/20 ML SDV ONE (12:48)
[2017-09-20] MEDS ORDERED: DIPHENHYDRAMINE HCL 50 MG/ML VIAL IV PRN (13:20)
[2017-09-20] MEDS ORDERED: PROMETHAZINE HCL INJ 25 MG/1 ML VIAL IV PRN ×2 (13:20)
[2017-09-20] MEDS ORDERED: OXYCODONE-ACETAMINOPHEN 5-325 MG TABLET PO PRN ×2 (13:20)
[2017-09-20] MEDS ORDERED: MEPERIDINE HCL/PF INJ 25 MG/1 ML DISP.SYRIN IV PRN (13:20)
--- NOTE | 2017-09-20 14:27 | Operative Report ---
Nonrecallable Operative Report DATE OF SURGERY: 09/20/17 PREOPERATIVE DIAGNOSIS: Hx multiple colon polyps. S/p multiple polypectomies. Sigmoid diverticulosis. Suspected sigmoid colon lesion @ 20 cm from anal verge POSTOPERATIVE DIAGNOSIS: Hx multiple colon polyps. S/p multiple polypectomies. Sigmoid diverticulosis. No sigmoid colon lesion identified OPERATION: colonoscopy to cecum. rigid proctosigmoidoscopy up to 25 cm SURGEON: FARAZ MANRIQUEZ ANESTHESIA: LMAC TISSUE REMOVED OR ALTERED: none COMPLICATIONS: non ESTIMATED BLOOD LOSS: n/a INTRAOPERATIVE FINDINGS: 1) Colonoscopy to cecum, identified at @ 70 cm from anal verge. 2) No polyps identified in colon. 3) Endoscopic vascular clip located in the ascending colon. 4) No sigmoid lesion identified on either colonoscopy or rigid proctosigmoidiscopy. 5) No inking identifed in the sigmoid colon PROCEDURE: see dictation
--- NOTE | 2017-09-20 16:05 | OPERATIVE REPORT E ---
Operative Report NAME: KASIA LÓPEZ : 1945 AGE: 72Y DATE OF SURGERY:09/20/2017 ROOM: 305 PREOPERATIVE DIAGNOSES: 1. HISTORY OF MULTIPLE COLON POLYPS. 2. SUSPECTED SIGMOID COLON MALIGNANCY AT 20 CM FROM THE ANAL VERGE. 3. SIGMOID DIVERTICULOSIS. POSTOPERATIVE DIAGNOSES: 1. HISTORY OF MULTIPLE COLON POLYPS. 2. HISTORY OF MULTIPLE COLON POLYPECTOMIES. 3. NEGATIVE COLONOSCOPY TO CECUM. 4. SIGMOID DIVERTICULOSIS. OPERATIONS: 1. Colonoscopy to cecum. 2. Rigid proctosigmoidoscopy to 25 cm. SURGEON: FARAZ MANRIQUEZ M.D. SECURITY ATTENDANT: None. ANESTHESIA: MAC provided by the anesthesiologist. ESTIMATED BLOOD LOSS: None. COMPLICATIONS: None. FLUIDS: 200 mL of crystalloids. INDICATIONS AND FINDINGS: This is a 72-year-old female with a history of hematochezia. She was seen by a glost kiln placer and underwent a colonoscopy done at an outside institution on September 09. According to the records, 9 polyps were removed from the entire colon; however, the pathology was available for only 4 of them, which were either normal mucosa, tubular adenoma or tubulovillous adenoma without evidence of malignancy or dysplasia. They were completely removed. The patient presented with further hematochezia. She underwent a colonoscopy on September 19 done by a different glost kil[employer] placer, who identified a bleeding point from a polypectomy site in the sigmoid colon, and this was clipped, as well as a large polyp, sessile, in the sigmoid colon, 20 cm from the anal verge. A decision was made to repeat the colonoscopy prior to undergoing any surgical procedure in order to identify the correct portion of the sigmoid colon to be removed in case it were necessary. PROCEDURE: The procedure was done in the operating room. Patient was placed in a supine position, then lateral decubitus. IV sedation provided by anesthesiologist via MAC anesthesia. The colonoscope was inserted through the rectum and slowly advanced to the sigmoid, which was very tortuous. It was then advanced to the left colon, transverse, and cecum. The cecum was identified at about 70 cm. The instrument was then slowly withdrawn. An endoscopic vascolar clip was identified at 60 cm from the anal verge, at the level of the ascending colon. This was then slowly withdrawn through the transverse, splenic flexure, left colon, and no masses, polyps, fissures or indentations were identified. The instrument was withdrawn into the transition of the left colon and sigmoid colon. Scattered diverticula were identified, without evidence of inflammation. The instrument was then slowly withdrawn through the transverse and sigmoid colon, down to the rectum, and careful examination of the mucosa of the sigmoid colon was performed, as well as the rectal mucosa. With the exception of a few scattered diverticula, no masses, polyps, fissures, indentations or imucosa changes were seen. No evidence of kinking was identified in the rectosigmoid area described at the time of the second colonoscopy. The mucosa was somewhat edematous because of the 2 bowel preps done with 1 day apart. At the end of the procedure, the instrument was removed without difficulty. A rigid proctosigmoidoscopy was performed up to about 25 cm, and the instrument was slowly withdrawn. No evidence of inking of the sigmoid mucosa or polyp was identified of the sigmoid colon. The instrument was withdrawn slowly, with careful examination of the mucosa of the rectosigmoid, but again, no lesions were noted. The instrument was then removed without difficulty. The patient tolerated the procedure well and was transferred to the recovery room in satisfactory condition. DICTATING PHYSICIAN: FARAZ MANRIQUEZ M.D. [id number] PHY#: [id number] ID: [id number] JOB#: [id number] ACCT: [id number] cc:FARAZ MANRIQUEZ M.D. > MTDD
[2017-09-20] MEDS ORDERED: NICOTINE 14 MG/24 HR PATCH.TD24 TD ONE (19:30)
[2017-09-21 04:37] LABS: HEMATOCRIT 32.9 % (36.0-47.0); HEMOGLOBIN 11.6 g/dL (12.0-15.5); MEAN CORPUSCULAR HEMOGLOBIN 29.1 pg (27.0-33.4); MEAN CORPUSCULAR HGB CONC 35.3 g/dL (32.0-36.0); MEAN CORPUSCULAR VOLUME 83 fl (80-97); PLATELET COUNT 310 10^3/uL (150-450); RED BLOOD COUNT 3.99 10^6/uL (3.72-5.28); RED CELL DISTRIBUTION WIDTH 14.7 % (11.5-14.0); WHITE BLOOD COUNT 5.4 10^3/uL (4.0-10.5)
[2017-09-21 04:58] LABS: ANION GAP 7 (5-19); BLOOD UREA NITROGEN 9 mg/dL (7-20); CALCIUM 9.9 mg/dL (8.4-10.2); CARBON DIOXIDE 27 mmol/L (22-30); CHLORIDE 113 mmol/L (98-107); GLUCOSE 90 mg/dL (75-110); POTASSIUM 3.5 mmol/L (3.6-5.0); SODIUM 146.7 mmol/L (137-145)
[2017-09-21] MEDS: GABAPENTIN 300 MG CAPSULE PO SCH ×2 (05:05→13:58)
[2017-09-21] MEDS: AMLODIPINE BESYLATE 5 MG TABLET PO SCH (09:53)
[2017-09-21] MEDS: FLUTICASONE/SALMETEROL DISKUS 250-50 MCG/DOSE IH SCH (09:53)
[2017-09-21] MEDS: FAMOTIDINE 20 MG TABLET PO SCH (09:53)
--- NOTE | 2017-09-21 12:41 | Progress Note ---
Provider Note Provider Note: patient was seen by Mohamud yesterday. No lesion found. History: patient seen by Dr Herrera recently, had colonoscopy done at outpatient. had several polyps removed, possible lesion in the sigmoid. Patient had PET/ CT scan recently. Radiologist makes mention of increased activity in the sigmoid are , which could be due to diverticulitis, but notes circumferential mass in sigmoid. patient presented with GI bleeding had colonoscopy done by myself. she had a post polypectomy bleeding site , Endoclip was placed. The area of the sigmoid is very tortuous and hard to insufflate. There is a heavy burden of diverticulosis along with aisha-diverticular hypertrophy. Noted to have a broad based area, suspicious for a polyp Surgery was called. she underwent rigid sigmoid scope, no lesion noted. Plan: Disparate findings. may be worthwhile to review PET scan ? check CEA level, ? alternative imaging ACBE close follow up is needed
[2017-09-21 15:46] VITALS: BP 145/71
--- NOTE | 2017-10-13 12:46 | PDOC DISCHARGE SUMMARY ---
General - Admit/Disc Date/PCP Admission Date/Primary Care Provider: 09/18/17 03:20 HITESH TOMLINSON PA-C Discharge Date: 09/21/17 - Discharge Diagnosis (1) Rectal bleeding Is this a current diagnosis for this admission?: Yes Summary: The patient was admitted to the medical floor on continuous cardiac telemetry. Her aspirin and Celebrex. She was transfused 2 units PRBC with stabalization of her Hgb. She underwent EGD (09/19/17) with findings of gastritis. Colonoscopy completed at same time with large base polyp that was not amenable to removal. GI was able to identify the source of bleeding at site of previous polypectomy and obtain hemostasis with clip. The patient was placed on H2-clarisa per GIs recommendations. Surgery was been consulted for evaluation of the large based polyp. She underwent a second colonoscopy on 09/20/17; surgery did not observe any polyps in the colon. Outpatient PET scan and biopsy results from initial colonoscopy are pending; pt is advised on the importance of close follow up with Dr. Herrera. She is instructed to hold her Aspirin and Celebrex until cleared by GI at her follow up appointment scheduled on 10/07/17. She is also recommended to follow up with her primary care provider within 1 week. At time of discharge, the patient was in stable condition, tolerating a regular diet, with stabilized Hgb and no further occurrences of rectal bleeding. She was discharged to home in the care of her family members. (2) Anemia Is this a current diagnosis for this admission?: Yes Summary: Acute blood loss anemia secondary to lower GI bleed at previous polypectomy site. s/p 2 units PRBC; Hgb 8.0 --> 10.9; 11.6 on day of discharge. Patient underwent colonoscopy with clip placed for bleeding control by Dr. Cassidy. The patient denied additional hematochezia/BRBPR following initial colonoscopy. (3) COPD (chronic obstructive pulmonary disease) Is this a current diagnosis for this admission?: Yes Summary: Without exacerbation. Patient endorses a history of COPD with tobacco use. Her home dose Advair was continued. Smoking cessation was encouraged. (4) Tobacco dependence Is this a current diagnosis for this admission?: Yes Summary: Smoking cessation was encouraged. Nicotine replacement therapies were provided. (5) Weight loss Is this a current diagnosis for this admission?: Yes Summary: Unclear etiology; biopsies do not appear to be malignant. Repeat colonoscopy did not identify the large based polyp noted during first colonoscopy. Recommend liberalized diet at discharge; encouraged high calorie/high protein. (6) Hypotension Is this a current diagnosis for this admission?: Yes Summary: Resolved; normotensive at present. The patient received 2 units PRBC and IVF. Home dose antihypertensives were resumed with appropriate blood pressure response. - Additional Information Resuscitation Status: Full Code Discharge Diet: Regular Discharge Activity: Activity As Tolerated, Balance Activity w/Rest Home Medications: Amlodipine Besylate [Norvasc 10 mg Tablet] 5 mg PO DAILY 09/18/17 Fluticasone/Salmeterol [Advair 250-50 Diskus 28 dose] 1 inh IH Q12H 09/18/17 Gabapentin [Neurontin] 600 mg PO TID 09/18/17 Multivit/Folic Acid/Vit K1 [One-A-Day Women's 50 Plus Tab] 1 each PO DAILY 09/18 Tizanidine HCl [Zanaflex 4 mg Tablet] 4 mg PO TIDP PRN 09/18/17 Acetaminophen [Tylenol 325 mg Tablet] 650 mg PO Q4HP PRN tablet 09/21/17 History of Present Illness History of Present Illness: Per H&P by Dr. Rodriguez: KASIA LÓPEZ is a 72 year old female with a past medical history of COPD, DVT, tobacco dependence, hypertension, osteoarthritis, weight loss and recent workup for colon cancer. Patient presents with sudden episode of large-volume bright red blood per rectum receiving TXA by EMS without further bleeding. Denying previous episode, fever chills, abdominal pain constipation or hard stools. In the emergency room she is found to have an unremarkable CBC and referred to the hospitalist for admission. Patient underwent CT abdomen 4 weeks ago concerning for colon cancer followed by PET scan followed by colonoscopy by Dr. Herrera with biopsy and polypectomy. Results are pending, patient has not yet had oncology referral. Continues to complain of mild suprapubic and left lower quadrant pain. She is typed and screened 2 units of packed red blood cells and referred to the hospitalist for admission. Physical Exam Vital Signs: Temp Pulse Resp BP Pulse Ox 97.4 F 62 17 144/85 H 100 09/21/17 15:23 09/21/17 15:23 09/21/17 15:23 09/21/17 15:23 09/21/17 15:23 General appearance: PRESENT: no acute distress, cooperative, thin, well- developed, well-nourished Head exam: PRESENT: atraumatic, normocephalic Eye exam: PRESENT: conjunctiva pink, EOMI, PERRLA. ABSENT: scleral icterus Ear exam: PRESENT: normal external ear exam Mouth exam: PRESENT: moist, tongue midline Neck exam: ABSENT: carotid bruit, JVD, lymphadenopathy, thyromegaly Respiratory exam: PRESENT: clear to auscultation mirna. ABSENT: rales, rhonchi, wheezes Cardiovascular exam: PRESENT: RRR. ABSENT: diastolic murmur, rubs, systolic murmur Pulses: PRESENT: normal dorsalis pedis pul Vascular exam: PRESENT: normal capillary refill GI/Abdominal exam: PRESENT: normal bowel sounds, soft. ABSENT: distended, guarding, mass, organolmegaly, rebound, tenderness Rectal exam: PRESENT: deferred Extremities exam: PRESENT: full ROM. ABSENT: calf tenderness, clubbing, pedal edema Neurological exam: PRESENT: alert, awake, oriented to person, oriented to place , oriented to time, oriented to situation, CN II-XII grossly intact. ABSENT: motor sensory deficit Psychiatric exam: PRESENT: appropriate affect, normal mood. ABSENT: homicidal ideation, suicidal ideation Skin exam: PRESENT: dry, intact, warm. ABSENT: cyanosis, rash Results Laboratory Results: 09/21/17 04:02 09/21/17 04:02 Impressions: Chest X-Ray 09/18/17 03:01 IMPRESSION: No acute cardiopulmonary findings. Qualifiers - * PATIENT BEING DISCHARGED WITH ANY OF THE FOLLOWING DIAGNOSIS: No Plan Discharge Plan: Discharge to home in the care of family members. Follow up with Primary Care Provider within 1 week. Follow-up with Dr. Herrera as scheduled. Time Spent: Less than 30 Minutes
== END 2017-09-21 16:40 | disposition home or self-care (01) | DRG 920 ==
LOC: ER 01:05 → EH 03:20 → 3N 13:03
PROVIDERS: ADMIT Internal Medicine; ATTEND Internal Medicine
PROC: 30233N1 Transfusion of Nonautologous Red Blood Cells into Peripheral Vein, Percutaneous Approach (ICD-10-PCS; 2017-09-19)
PROC: 0W3P8ZZ Control Bleeding in Gastrointestinal Tract, Via Natural or Artificial Opening Endoscopic (ICD-10-PCS; principal; 2017-09-19 14:00)
PROC: 0DB68ZX Excision of Stomach, Via Natural or Artificial Opening Endoscopic, Diagnostic (ICD-10-PCS; 2017-09-19 14:00)
PROC: 0DJD8ZZ Inspection of Lower Intestinal Tract, Via Natural or Artificial Opening Endoscopic (ICD-10-PCS; 2017-09-19 14:00)
PROC: 0DJD8ZZ Inspection of Lower Intestinal Tract, Via Natural or Artificial Opening Endoscopic (ICD-10-PCS; 2017-09-20)
PROC: 0DJD8ZZ Inspection of Lower Intestinal Tract, Via Natural or Artificial Opening Endoscopic (ICD-10-PCS; 2017-09-20)
DX: K91.840 Postprocedural hemorrhage of a digestive system organ or structure following a digestive system procedure (principal); C18.7 Malignant neoplasm of sigmoid colon; D62 Acute posthemorrhagic anemia; K63.3 Ulcer of intestine; J44.9 Chronic obstructive pulmonary disease, unspecified; K29.70 Gastritis, unspecified, without bleeding; K57.30 Diverticulosis of large intestine without perforation or abscess without bleeding; R63.4 Abnormal weight loss; I95.9 Hypotension, unspecified; I10 Essential (primary) hypertension; M19.90 Unspecified osteoarthritis, unspecified site; F17.210 Nicotine dependence, cigarettes, uncomplicated; Z86.718 Personal history of other venous thrombosis and embolism; Z86.010 Personal history of colon polyps
CPT/HCPCS: 36415; 36430; 43239; 45381; 45382; 51701; 71045; 80048; 80053; 81001; 811; 813; 82378; 82550; 82962; 83605; 84484; 85025; 85027; 85610; 86850; 86900; 86901; 86920; 88305; 88342; 93005; 93010; 94640; 99291; C9290; J2250; J2704; J3010; J3490; J7030; J7120; J7620; P9016

== ENCOUNTER 2018-09-03 17:13 | Inpatient (IN) | payer MEDICARE, OTHER ==
--- NOTE | 2018-09-03 18:04 | RADIOLOGY REPORT (SQ) ---
EXAM DESCRIPTION: HIP LEFT AP/LATERAL COMPLETED DATE/TIME: 09/03/2018 5:56 pm REASON FOR STUDY: bed 10 fall l hip pain COMPARISON: None. NUMBER OF VIEWS: Two views. TECHNIQUE: AP pelvis and additional frog-leg view of the left hip. LIMITATIONS: None. FINDINGS: MINERALIZATION: Normal. LEFT HIP: Subcapital fracture with superior migration of the femoral shaft. RIGHT HIP: No fracture or dislocation. No worrisome bone lesions. PUBIS AND ISCHIUM: No fracture. PELVIS: No fracture. SACRUM: No fracture or dislocation. No worrisome bone lesions. LOWER LUMBAR SPINE: No fracture or dislocation. No worrisome bone lesions. No significant disc disea se. SOFT TISSUES: No findings. OTHER: No other significant finding. IMPRESSION: Subcapital fracture of the left femur. TECHNICAL DOCUMENTATION: JOB ID: [id number] [employer]- All Rights Reserved Reading location - IP/workstation name: [email or web address]
[2018-09-03] MEDS ORDERED: FENTANYL CITRATE INJ/PF 100 MCG/2 ML AMPUL IV ONE ×3 (18:30→21:56)
--- NOTE | 2018-09-03 18:41 | ER Document Report ---
ED Hip Pain/Injury - General Chief Complaint: Hip Injury Stated Complaint: FALL/LEFT HIP PAIN Time Seen by Provider: 09/03/18 17:43 Primary Care Provider: LISETTE WHEELER MD [Primary Care Provider] - Follow up as needed TRAVEL OUTSIDE OF THE [place] IN LAST 30 DAYS: No - HPI Notes: Patient is a 73-year-old female with a history of gastritis, COPD, anemia who presents to the emergency department after a fall. Patient states that she was walking down the hallway to the kitchen when she lost her footing and fell onto her left side. Patient states that she fell onto vinyl lashay. The fall was unwitnessed. Family member who was in the house for the fall came to her side right after and found her laying on her left hip. Patient denies loss of consciousness or head injury. Patient currently denies head or neck pain. Patient states that she is being treated for chronic mid back pain in which she takes hydrocodone for as well as gabapentin. Patient denies use of blood thinners including aspirin. She complains of left hip and left upper leg pain. Patient states she has been unable to ambulate or move it due to the severe pain. Patient denies chest pain, shortness of breath, dizziness prior to fall. Patient believes she just lost her footing. States she is supposed to use a cane but was not using it at the time. - Related Data Allergies/Adverse Reactions: No Known Allergies Allergy (Unverified 09/18/17 10:34) Past Medical History - General Information source: Patient - Social History Smoking Status: Current Every Day Smoker Cigarette use (# per day): Yes Chew tobacco use (# tins/day): Yes - 1/2 ppd Smoking Education Provided: Yes Frequency of alcohol use: None Drug Abuse: None Lives with: Family Family History: CAD. denies: Malignancy - Past Medical History Cardiac Medical History: Reports: Hx Hypertension Denies: Hx Heart Attack Pulmonary Medical History: Reports: Hx COPD Denies: Hx Asthma EENT Medical History: Reports: None Neurological Medical History: Reports: None. Denies: Hx Cerebrovascular Accident, Hx Seizures Endocrine Medical History: Reports: None Renal/ Medical History: Reports: None. Denies: Hx Peritoneal Dialysis Malignancy Medical History: Reports: None GI Medical History: Reports: Hx Gastritis. Denies: Hx Hepatitis, Hx Hiatal Hernia, Hx Ulcer Musculoskeletal Medical History: Reports Other - Chronic "mid back pain." Skin Medical History: Reports None Psychiatric Medical History: Reports: None Traumatic Medical History: Reports: None Infectious Medical History: Reports: None. Denies: Hx Hepatitis Past Surgical History: Reports: Hx Appendectomy. Denies: Hx Mastectomy, Hx Open Heart Surgery, Hx Pacemaker Review of Systems - Review of Systems Constitutional: No symptoms reported EENT: No symptoms reported Cardiovascular: No symptoms reported Respiratory: No symptoms reported Gastrointestinal: No symptoms reported Genitourinary: No symptoms reported Female Genitourinary: No symptoms reported Musculoskeletal: See HPI Skin: No symptoms reported Hematologic/Lymphatic: No symptoms reported Neurological/Psychological: No symptoms reported Physical Exam - Notes Notes: GENERAL: Well-appearing, well-nourished and in no acute distress. HEAD: Atraumatic, normocephalic. No ecchymosis or battles sign. EYES: Pupils equal round and reactive to light 3mm bilaterally, extraocular movements intact, sclera anicteric, conjunctiva are normal. ENT: Nares patent, oropharynx clear without exudates. Moist mucous membranes. NECK: Normal range of motion, supple without lymphadenopathy or JVD. LUNGS: Breath sounds clear to auscultation bilaterally and equal. Scattered rhonchi that clears with cough. HEART: Regular rate and rhythm without murmurs, rubs or gallops. ABDOMEN: Soft, nontender, normoactive bowel sounds. No guarding, no rebound. No masses appreciated. BACK: No cervical, thoracic, lumbar midline tenderness. No saddle anesthesia, normal distal neurovascular exam. GENITOURINARY: Deferred. EXTREMITIES: Left hip tender to palpation, no obvious bruising or deformity. Left leg is externally rotated. + 2 strong femoral and dorsalis pedis pulses bilaterally. Two small skin tears noted to left elbow, patient has full ROM to elbow with flexion and extension. Strong equal market research coordinator bilaterally, + opposition. NEUROLOGICAL: Cranial nerves II through XII grossly intact. Normal speech. Unable to assess gait due to injury. PSYCH: Normal mood, normal affect. SKIN: Warm, Dry, normal turgor, no rashes or lesions noted. Course - Re-evaluation Re-evalutation: 09/03/18 18:51 Will obtain basic labs and EKG. Give additional dose of pain medication. Plan to admit to hospitalist and consult orthopedics. 09/03/18 19:[address] [employer] [address] Cho. 09/03/18 19:[address] Cho who will place on consult list. 09/03/18 19:[address] Rodriguez for admission. Would like to wait for blood results and add chest XRAY prior to accepting admission. 09/03/18 19:49 Rolled patient onto right side to visualize back, no bruising or skin breakdown noted. No cervical, thoracic, and lumbar tenderness. Patient had a 2x2 bandage to left upper back that she states was a cyst that her PCP has been monitoring. 09/03/18 20:[address] Rodriguez regarding elevated BUN/Creat and 6.2 K+, will admit to IMCU and place orders. - Laboratory Result Diagrams: 09/03/18 19:05 09/03/18 19:05 Laboratory results interpreted by me: 09/03/18 09/03/18 19:05 19:05 RDW 14.7 H Potassium 6.2 H* BUN 44 H Creatinine 2.01 H Est GFR ( Amer) 29 L Est GFR (Non-Af Amer) 24 L Calcium 11.1 H AST 42 H ALT 57 H - Diagnostic Test Radiology reviewed: Image reviewed, Reports reviewed Radiology results interpreted by me: 09/03/18 18:52 XRAY shows left capital fracture of the left femur. - EKG Interpretation by Me Additional EKG results interpreted by me: 09/03/18 19:12 Patient's EKG shows a sinus rhythm with a heart rate of 63. Patient's TX interval is 144, QT is 436 and QTC is 447. There is no ST segment changes in consecutive leads. There appears to be no change from previous EKG Discharge - Discharge Clinical Impression: Hyperkalemia, Elevated BUN, Elevated serum creatinine, Hypercalcemia Femur fracture, left Qualifiers: Encounter type: initial encounter Femur location: shaft Fracture type: closed Fracture morphology: other fracture Qualified Code(s): S72.392A - Other fracture of shaft of left femur, initial encounter for closed fracture Fall Qualifiers: Encounter type: initial encounter Qualified Code(s): W19.XXXA - Unspecified fall, initial encounter Condition: Stable Disposition: ADMITTED INPATIENT Admitting Provider: Michael (Hospitalist) Unit Admitted: IMCU Referrals: LISETTE WHEELER MD [Primary Care Provider] - Follow up as needed
[2018-09-03 19:31] LABS: HEMOGLOBIN 14.5 g/dL (12.0-15.5); INTERNATIONAL RATION (INR) 0.94; MEAN CORPUSCULAR HEMOGLOBIN 28.8 pg (27.0-33.4); MEAN CORPUSCULAR HGB CONC 33.6 g/dL (32.0-36.0); MEAN CORPUSCULAR VOLUME 86 fl (80-97); PARTIAL THROMBOPLASTIN TIME 26.4 SEC (23.5-35.8); PLATELET COUNT 416 10^3/uL (150-450); PROTHROMBIN TIME 13.1 SEC (11.4-15.4); RED BLOOD COUNT 5.02 10^6/uL (3.72-5.28); RED CELL DISTRIBUTION WIDTH 14.7 % (11.5-14.0)
[2018-09-03 19:45] LABS: ALANINE AMINOTRANSFERASE 57 U/L (9-52); ALBUMIN 4.1 g/dL (3.5-5.0); ALKALINE PHOSPHATASE 72 U/L (38-126); ANION GAP 8 (5-19); ASPARTATE AMINO TRANSFERASE 42 U/L (14-36); BILIRUBIN,DIRECT 0.2 mg/dL (0.0-0.4); BILIRUBIN,TOTAL 0.2 mg/dL (0.2-1.3); BLOOD UREA NITROGEN 44 mg/dL (7-20); CALCIUM 11.1 mg/dL (8.4-10.2); CARBON DIOXIDE 25 mmol/L (22-30); CHLORIDE 105 mmol/L (98-107); GLUCOSE 82 mg/dL (75-110); SODIUM 138.2 mmol/L (137-145); TOTAL PROTEIN 7.1 g/dL (6.3-8.2)
[2018-09-03 19:49] LABS: ABSOLUTE LYMPHOCYTES# (MANUAL) 1.2 10^3/uL (0.5-4.7); ABSOLUTE MONOCYTES # (MANUAL) 0.5 10^3/uL (0.1-1.4); BASOPHILS % (MANUAL) 0 % (0-2); EOSINOPHILS % (MANUAL) 3 % (0-6); LYMPHOCYTES % (MANUAL) 13 % (13-45); MONOCYTES % (MANUAL) 6 % (3-13); SEGMENTED NEUTROPHILS % (MAN) 78 % (42-78); TOTAL CELLS COUNTED 100
[2018-09-03 19:50] LABS: ANISOCYTOSIS SLIGHT; PLATELET CLUMPS PRESENT; PLATELET COMMENT ADEQUATE
[2018-09-03 19:52] LABS: POTASSIUM 6.2 mmol/L (3.6-5.0)
[2018-09-03] MEDS ORDERED: GLUCAGON,HUMAN RECOMB 1 MG INJ IM PRN (20:02)
[2018-09-03] MEDS ORDERED: DEXTROSE 40% GEL 15 GM TUBE PO PRN ×2 (20:02)
[2018-09-03] MEDS ORDERED: DEXTROSE 50%-WATER 25 GM/50 ML DISP.SYRIN IV PRN ×2 (20:02)
[2018-09-03] MEDS ORDERED: DEXTROSE 50%-WATER 25 GM/50 ML DISP.SYRIN IV ONE ×2 (20:02→22:11)
[2018-09-03] MEDS ORDERED: MAG HYDROX/AL HYDROX/SIMETH SUSP 30 ML UDCUP PO PRN (20:02)
[2018-09-03] MEDS ORDERED: IPRATROPIUM/ALBUTEROL 0.5-2.5 MG/3 ML AMPUL NEB ONE ×2 (20:02→22:11)
[2018-09-03] MEDS ORDERED: ACETAMINOPHEN 325 MG TABLET PO PRN (20:02)
[2018-09-03] MEDS ORDERED: HYDRALAZINE HCL INJ/PF 20 MG/1 ML SDV IV PRN (20:06)
[2018-09-03] MEDS ORDERED: NORMAL SALINE 1000 ML 1,000 ML IV SCH (20:15)
[2018-09-03 20:28] LABS: APPEARANCE,URINE SLIGHTLY-CLOUDY; BILIRUBIN,URINE NEGATIVE (NEGATIVE); COLOR,URINE YELLOW; GLUCOSE, URINE NEGATIVE (NEGATIVE); KETONES,URINE TRACE mg/dL (NEGATIVE); LEUKOCYTE ESTERASE,URINE NEGATIVE (NEGATIVE); NITRITE,URINE NEGATIVE (NEGATIVE); PROTEIN,URINE 30 mg/dL (NEGATIVE); URINE SPECIFIC GRAVITY 1.016; UROBILINOGEN,URINE NEGATIVE mg/dL (<2.0)
--- NOTE | 2018-09-03 20:28 | RADIOLOGY REPORT (SQ) ---
XR CHEST 1 VIEW HISTORY: Fall. COMPARISON: 09/18/2017 FINDINGS: The heart size is within normal limits. No consolidation, pleural effusion, or pneumothorax is seen. Increased lucency of the lungs suggesting emphysema. There are multiple age-indeterminate left-sided rib fractures IMPRESSION: No evidence of acute cardiopulmonary disease. Age-indeterminate left-sided fractures, some of which are chronic.
[2018-09-03] MEDS ORDERED: LACTULOSE SYRUP 20 GM/30 ML UDCUP PO ONE (20:30)
[2018-09-03] MEDS ORDERED: ALPRAZOLAM 0.5 MG PO PRN (21:56)
[2018-09-03] MEDS ORDERED: TIZANIDINE HCL 4 MG TABLET PO PRN (21:56)
[2018-09-03] MEDS: FENTANYL CITRATE INJ/PF 100 MCG/2 ML AMPUL IV PRN (22:02)
[2018-09-03] MEDS ORDERED: INSULIN REG, HUMAN 100 UNIT/ML 3 ML VIAL (PYX) IV ONE (22:30)
[2018-09-03] MEDS: HEPARIN SOD (PORCINE) 5,000 UNIT/ML 1 ML SYRINGE SUBCUT SCH (22:40)
[2018-09-03] MEDS: IPRATROPIUM/ALBUTEROL 0.5-2.5 MG/3 ML AMPUL NEB PRN (22:41)
[2018-09-03] MEDS: DEXTROSE 5%-WATER 1000 ML 1,000 ML with SODIUM BICARBONATE 50 MEQ IV PRN ×2 (22:42)
[2018-09-04 01:21] LABS: ANION GAP 10 (5-19); BLOOD UREA NITROGEN 41 mg/dL (7-20); CALCIUM 10.7 mg/dL (8.4-10.2); CARBON DIOXIDE 21 mmol/L (22-30); CHLORIDE 106 mmol/L (98-107); GLUCOSE 154 mg/dL (75-110); POTASSIUM 5.6 mmol/L (3.6-5.0); SODIUM 136.5 mmol/L (137-145)
[2018-09-04] MEDS: NORMAL SALINE 1000 ML 1,000 ML IV PRN ×3 (01:23→17:34)
[2018-09-04] MEDS ORDERED: LACTULOSE SYRUP 20 GM/30 ML UDCUP PO ONE (01:45)
[2018-09-04] MEDS: FENTANYL CITRATE INJ/PF 100 MCG/2 ML AMPUL IV PRN ×4 (02:18→17:24)
[2018-09-04] MEDS ORDERED: FUROSEMIDE INJ/PF 20 MG/2 ML SDV IV ONE (04:01)
[2018-09-04] MEDS ORDERED: NORMAL SALINE 1000 ML 1,000 ML IV ONE (04:05)
--- NOTE | 2018-09-04 04:33 | PDOC H&P ---
History of Present Illness Admission Date/PCP: 09/03/18 20:26 LISETTE WHEELER MD Patient complains of: Left hip pain History of Present Illness: KASIA LÓPEZ is a 73 year old female with a past medical history of hypertension, gastritis, osteoarthritis, gait disorder, DVT, non-oxygen dependent COPD, persistent tobacco dependence and weight loss. Patient presents after ambulating without cane resulting in loss of footing and fall to the ground with subsequent left hip pain. In the emergency department she is found to have acute renal failure, prerenal azotemia, hyperkalemia without peak T waves, hypercalcemia and a left-sided hip fracture. She is referred to the hospitalist for admission following orthopedic surgery consultation to Dr. Cho. She denies preceding or subsequent head trauma, dizziness, lightheadedness, vertigo, loss of consciousness, palpitations, shortness of breath, chest pain, nausea or vomiting. She denies recent changes in medication but takes aspirin, hydrocodone and gabapentin. She admits to generalized weakness, difficulty with walking and often forgets to use her prescribed cane. She is able to ambulate approximately 25 feet and limited by shortness of breath and fatigue. She admits to approximate 40 pound weight loss in the last 12 months with unknown cause. Past Medical History Cardiac Medical History: Reports: Hypertension Denies: Myocardial Infarction Pulmonary Medical History: Reports: Chronic Obstructive Pulmonary Disease (COPD) Denies: Asthma EENT Medical History: Reports: None Neurological Medical History: Reports: None Denies: Seizures Endocrine Medical History: Reports: None Renal/ Medical History: Reports: None Malignancy Medical History: Reports: None GI Medical History: Denies: Hepatitis, Hiatal Hernia Musculoskeltal Medical History: Reports: Other - Chronic "mid back pain." Skin Medical History: Reports: None Psychiatric Medical History: Reports: None Traumatic Medical History: Reports: None Hematology: Denies: Anemia, Sickle Cell Disease Infectious Medical History: Reports: None Past Surgical History Past Surgical History: Reports: Appendectomy Denies: Amputation, Mastectomy, Pacemaker Social History Information Source: Patient, [facility] Records Lives with: Family Smoking Status: Current Every Day Smoker Cigarettes Packs Per Day: 0.5 Number of Years Smokin Last Time Smoked: 09/03/2018 Frequency of Alcohol Use: None Hx Recreational Drug Use: Yes Drugs: None Hx Prescription Drug Abuse: No - Advance Directive Resuscitation Status: Full Code Family History Family History: CAD, Hypertension. denies: Malignancy Parental Family History Reviewed: Yes Children Family History Reviewed: Yes Sibling(s) Family History Reviewed.: Yes Medication/Allergy Home Medications: Alprazolam [Alprazolam ER] 0.5 mg PO BIDP PRN 09/03/18 Celecoxib [Celebrex 200 mg Capsule] 200 mg PO BIDP PRN 09/03/18 Citalopram Hydrobromide [Citalopram HBr] 10 mg PO DAILY 09/03/18 Fluticasone/Salmeterol [Advair 250-50 Diskus 14 Dose/Diskus] 1 inh IH BID 09/03/18 Gabapentin [Neurontin] 600 mg PO Q8 09/03/18 Hydrocodone/Acetaminophen [[place] 5-325 Tablet] 1 each PO Q8HP PRN 09/03/18 Tizanidine HCl [Zanaflex 4 Mg Tablet] 4 mg PO Q8HP PRN 09/03/18 Umeclidinium Brm/Vilanterol Tr [Anoro Ellipta 62.5-25 Mcg INH] 1 puff IH DAILY 09/03/18 Allergies/Adverse Reactions: No Known Allergies Allergy (Unverified 09/18/17 10:34) Review of Systems Constitutional: PRESENT: as per HPI, fatigue, weakness, weight loss. ABSENT: night sweats Eyes: ABSENT: visual disturbances Ears: ABSENT: hearing changes Cardiovascular: ABSENT: chest pain, dyspnea on exertion, edema, orthropnea, palpitations Respiratory: PRESENT: as per HPI, dyspnea. ABSENT: cough, hemoptysis, sputum Gastrointestinal: ABSENT: abdominal pain, constipation, diarrhea, hematemesis, hematochezia, nausea, vomiting Genitourinary: ABSENT: dysuria, hematuria Musculoskeletal: PRESENT: as per HPI, muscle weakness Integumentary: ABSENT: rash, wounds Neurological: ABSENT: abnormal gait, abnormal speech, confusion, dizziness, focal weakness, syncope Psychiatric: ABSENT: anxiety, depression, homidical ideation, suicidal ideation Endocrine: ABSENT: cold intolerance, heat intolerance, polydipsia, polyuria Hematologic/Lymphatic: ABSENT: easy bleeding, easy bruising Physical Exam Vital Signs: Temp Pulse Resp BP Pulse Ox 98.0 F 64 24 H 152/77 H 98 09/03/18 22:34 09/03/18 22:34 09/03/18 22:34 09/03/18 22:34 09/03/18 22:34 Intake & Output 09/02/18 09/03/18 09/04/18 11:59 11:59 11:59 Output Total 375 Balance -375 Weight 40.9 kg General appearance: PRESENT: cooperative, mild distress, thin, well-developed, well-nourished, other - Frail appearing older than stated age with cachexia and temporal wasting. Head exam: PRESENT: atraumatic, normocephalic Eye exam: PRESENT: conjunctiva pink, EOMI, PERRLA. ABSENT: scleral icterus Ear exam: PRESENT: normal external ear exam Mouth exam: PRESENT: dry mucosa, tongue midline Neck exam: ABSENT: carotid bruit, JVD, lymphadenopathy, thyromegaly Respiratory exam: PRESENT: clear to auscultation mirna, prolonged expiratory phas, symmetrical. ABSENT: rales, rhonchi, wheezes Cardiovascular exam: PRESENT: RRR. ABSENT: diastolic murmur, rubs, systolic murmur Pulses: PRESENT: normal dorsalis pedis pul Vascular exam: PRESENT: normal capillary refill GI/Abdominal exam: PRESENT: normal bowel sounds, soft. ABSENT: distended, guarding, mass, organolmegaly, rebound, tenderness Rectal exam: PRESENT: deferred Extremities exam: PRESENT: other - Left lower extremity shortened and externally rotated. ABSENT: calf tenderness, clubbing, full ROM, pedal edema Neurological exam: PRESENT: alert, awake, oriented to person, oriented to place, oriented to time, oriented to situation, CN II-XII grossly intact. ABSENT: motor sensory deficit Psychiatric exam: PRESENT: appropriate affect, normal mood. ABSENT: homicidal ideation, suicidal ideation Skin exam: PRESENT: dry, intact, warm. ABSENT: cyanosis, rash Results Laboratory Results: 09/03/18 19:05 09/04/18 00:51 09/03/18 09/03/18 09/03/18 19:05 19:05 19:05 WBC 9.0 RBC 5.02 Hgb 14.5 Hct 43.0 MCV 86 MCH 28.8 MCHC 33.6 RDW 14.7 H Plt Count 416 Seg Neutrophils % Not Reportable Lymphocytes % Not Reportable Monocytes % Not Reportable Eosinophils % Not Reportable Basophils % Not Reportable Absolute Neutrophils Not Reportable Absolute Lymphocytes Not Reportable Absolute Monocytes Not Reportable Absolute Eosinophils Not Reportable Absolute Basophils Not Reportable Sodium 138.2 Potassium 6.2 H* Chloride 105 Carbon Dioxide 25 Anion Gap 8 BUN 44 H Creatinine 2.01 H Est GFR ( Amer) 29 L Est GFR (Non-Af Amer) 24 L Glucose 82 Calcium 11.1 H Total Bilirubin 0.2 AST 42 H ALT 57 H Alkaline Phosphatase 72 Total Protein 7.1 Albumin 4.1 Urine Color Urine Appearance Urine pH Ur Specific [place] Urine Protein Urine Glucose (UA) Urine Ketones Urine Blood Urine Nitrite Ur Leukocyte Esterase Urine WBC (Auto) Urine RBC (Auto) Blood Type A POSITIVE Antibody Screen NEGATIVE 09/03/18 09/04/18 19:47 00:51 WBC RBC Hgb Hct MCV MCH MCHC RDW Plt Count Seg Neutrophils % Lymphocytes % Monocytes % Eosinophils % Basophils % Absolute Neutrophils Absolute Lymphocytes Absolute Monocytes Absolute Eosinophils Absolute Basophils Sodium 136.5 L Potassium 5.6 H Chloride 106 Carbon Dioxide 21 L Anion Gap 10 BUN 41 H Creatinine 1.65 H Est GFR ( Amer) 37 L Est GFR (Non-Af Amer) 30 L Glucose 154 H Calcium 10.7 H Total Bilirubin AST ALT Alkaline Phosphatase Total Protein Albumin Urine Color YELLOW Urine Appearance SLIGHTLY-CLOUDY Urine pH 6.0 Ur Specific [place] 1.016 Urine Protein 30 H Urine Glucose (UA) NEGATIVE Urine Ketones TRACE H Urine Blood NEGATIVE Urine Nitrite NEGATIVE Ur Leukocyte Esterase NEGATIVE Urine WBC (Auto) 3 Urine RBC (Auto) 9 Blood Type Antibody Screen Impressions: Hip X-Ray 09/03/18 00:00 IMPRESSION: Subcapital fracture of the left femur. Chest X-Ray 09/03/18 19:33 IMPRESSION: No evidence of acute cardiopulmonary disease. Age-indeterminate left-sided fractures, some of which are chronic. Assessment and Plan - Diagnosis (1) Femur fracture, left Qualifiers: Encounter type: initial encounter Femur location: shaft Fracture type: closed Fracture morphology: other fracture Qualified Code(s): S72.392A - Other fracture of shaft of left femur, initial encounter for closed fracture Is this a current diagnosis for this admission?: Yes Plan: Baseline frail, unable to perform 4 METS, COPD at baseline. Current acute metabolic derangement. Reversible risk for cardiac arrhythmia present with hyperkalemia and hypercalcemia. Anticipated acceptable correction of hyperkalemia of 5.0 and hypercalcemia of 10.2 within the next 12 to 18 hours. Otherwise she remains a moderate high risk patient given baseline debility. (2) Acute kidney injury Is this a current diagnosis for this admission?: Yes Plan: Appears primarily prerenal, IV fluid challenge, follow-up chemistry every 12 hours (4) COPD (chronic obstructive pulmonary disease) Is this a current diagnosis for this admission?: Yes Plan: Appears at baseline comfortable lying flat, incentive spirometry, albuterol and Atrovent ordered every 12 and as needed (5) Tobacco dependence Is this a current diagnosis for this admission?: Yes Plan: Tobacco Dependence patient received tobacco cessation counseling and offered nicotine replacement options (6) Weight loss Is this a current diagnosis for this admission?: Yes Plan: Likely underlying occult malignancy. Consider follow-up chest CT given e xcessive tobacco exposure and colonoscopy given questionable diverticular versus rectosigmoid malignancy PET scan 12 months ago. - Time Time Spent with patient: 35 or more minutes - Inpatient Certification Medical Necessity: Need Close Monitoring Due to Risk of Patient Decompensation
[2018-09-04 06:12] LABS: HEMATOCRIT 39.4 % (36.0-47.0); HEMOGLOBIN 13.2 g/dL (12.0-15.5); MEAN CORPUSCULAR HEMOGLOBIN 28.7 pg (27.0-33.4); MEAN CORPUSCULAR HGB CONC 33.6 g/dL (32.0-36.0); MEAN CORPUSCULAR VOLUME 86 fl (80-97); PLATELET COUNT 352 10^3/uL (150-450); RED CELL DISTRIBUTION WIDTH 14.4 % (11.5-14.0); WHITE BLOOD COUNT 5.3 10^3/uL (4.0-10.5)
[2018-09-04] MEDS: HEPARIN SOD (PORCINE) 5,000 UNIT/ML 1 ML SYRINGE SUBCUT SCH ×3 (06:27→22:04)
[2018-09-04] MEDS: DEXTROSE 5%-WATER 1000 ML 1,000 ML with SODIUM BICARBONATE 50 MEQ IV PRN ×2 (06:27)
--- NOTE | 2018-09-04 06:29 | ADVANCED CARE ---
Attendance: Patient Resuscitation Status: Full Code Discussion: Patient urged to consider healthcare proxy. Patient indicates children Jowy and Renata Xiomy. Time Spent: 17 minutes spent
[2018-09-04 06:33] LABS: ANION GAP 7 (5-19); BLOOD UREA NITROGEN 33 mg/dL (7-20); CALCIUM 9.6 mg/dL (8.4-10.2); CARBON DIOXIDE 25 mmol/L (22-30); CHLORIDE 108 mmol/L (98-107); GLUCOSE 119 mg/dL (75-110); POTASSIUM 5.4 mmol/L (3.6-5.0); SODIUM 139.9 mmol/L (137-145)
[2018-09-04 07:24] LABS: ABSOLUTE LYMPHOCYTES# (MANUAL) 1.4 10^3/uL (0.5-4.7); ABSOLUTE MONOCYTES # (MANUAL) 0.6 10^3/uL (0.1-1.4); ABSOLUTE NEUTROPHILS# (MANUAL) 3.2 10^3/uL (1.7-8.2); BAND NEUTROPHILS % (MANUAL) 1 % (3-5); BASOPHILS % (MANUAL) 1 % (0-2); EOSINOPHILS % (MANUAL) 1 % (0-6); LYMPHOCYTES % (MANUAL) 25 % (13-45); MONOCYTES % (MANUAL) 11 % (3-13); SEGMENTED NEUTROPHILS % (MAN) 60 % (42-78); TOTAL CELLS COUNTED 100
[2018-09-04 07:25] LABS: ANISOCYTOSIS SLIGHT
[2018-09-04 07:26] LABS: PLATELET COMMENT ADEQUATE
--- NOTE | 2018-09-04 07:42 | EKG REPORT ---
SEVERITY:- NORMAL ECG - SINUS RHYTHM : Confirmed by: Krish Sinclair MD 04-Sep-2018 07:41:54
[2018-09-04] MEDS: MORPHINE SULFATE 10 MG/ML INJ IV PRN ×6 (08:35→14:52)
[2018-09-04] MEDS ORDERED: MORPHINE SULFATE 10 MG/ML INJ ONE ×4 (08:37→12:32)
[2018-09-04] MEDS: CITALOPRAM HYDROBROMIDE 20 MG TABLET PO SCH (10:52)
[2018-09-04] MEDS ORDERED: HYDROMORPHONE HCL INJ/PF 2 MG/ML AMPULE ONE ×3 (13:00→15:11)
[2018-09-04] MEDS: IPRATROPIUM/ALBUTEROL 0.5-2.5 MG/3 ML AMPUL NEB PRN ×2 (13:09→22:31)
--- NOTE | 2018-09-04 13:50 | PDOC PROGRESS REPORT ---
Subjective Progress Note for:: 09/04/18 Subjective:: This is 73 years old female patient with past medical history of hypertension, COPD, history of DVT, GI bleeding and tobacco dependence presented with chief complaint of left hip pain after she involved in a mechanical fall and landed on her left side. Her pelvic x-ray reported as subcapital fracture of the left femur. Her blood work shows hyperkalemia with potassium of 6.2 and after treatment to date is 5.4 and acute kidney injury with creatinine of 2.01 and after careful hydration her creatinine dropped to 1.40. This morning I seen patient lying on her back and complaining of excruciating pain at the fracture site. She is given fentanyl and morphine sulfate. Patient scheduled for orthopedic procedure. Reason For Visit: LEFT HIP FX,MAGDI,HYPERKALEMIA,HYPERCALCEMIA Physical Exam Vital Signs: Temp Pulse Resp BP Pulse Ox 98.2 F 70 16 119/88 H 91 L 09/04/18 11:02 09/04/18 13:09 09/04/18 13:09 09/04/18 11:02 09/04/18 13:09 Intake & Output 09/03/18 09/04/18 09/05/18 06:59 06:59 06:59 Intake Total 2000 150 Output Total 725 950 Balance 1275 -800 Weight 39.8 kg General appearance: PRESENT: thin Head exam: PRESENT: atraumatic Eye exam: PRESENT: conjunctiva pink Neck exam: ABSENT: carotid bruit, JVD, lymphadenopathy, thyromegaly Respiratory exam: PRESENT: clear to auscultation mirna. ABSENT: rales, rhonchi, wheezes Cardiovascular exam: PRESENT: RRR. ABSENT: diastolic murmur, rubs, systolic murmur GI/Abdominal exam: PRESENT: normal bowel sounds, soft. ABSENT: distended, guarding, mass, organolmegaly, rebound, tenderness Neurological exam: PRESENT: alert, awake, oriented to person, oriented to place, oriented to time, oriented to situation Results Laboratory Results: 09/04/18 05:57 09/04/18 05:57 09/03/18 09/03/18 09/03/18 19:05 19:05 19:05 WBC 9.0 RBC 5.02 Hgb 14.5 Hct 43.0 MCV 86 MCH 28.8 MCHC 33.6 RDW 14.7 H Plt Count 416 Seg Neutrophils % Not Reportable Lymphocytes % Not Reportable Monocytes % Not Reportable Eosinophils % Not Reportable Basophils % Not Reportable Absolute Neutrophils Not Reportable Absolute Lymphocytes Not Reportable Absolute Monocytes Not Reportable Absolute Eosinophils Not Reportable Absolute Basophils Not Reportable Sodium 138.2 Potassium 6.2 H* Chloride 105 Carbon Dioxide 25 Anion Gap 8 BUN 44 H Creatinine 2.01 H Est GFR ( Amer) 29 L Est GFR (Non-Af Amer) 24 L Glucose 82 Calcium 11.1 H Total Bilirubin 0.2 AST 42 H ALT 57 H Alkaline Phosphatase 72 Total Protein 7.1 Albumin 4.1 PTH Intact Urine Color Urine Appearance Urine pH Ur Specific [place] Urine Protein Urine Glucose (UA) Urine Ketones Urine Blood Urine Nitrite Ur Leukocyte Esterase Urine WBC (Auto) Urine RBC (Auto) Blood Type A POSITIVE Antibody Screen NEGATIVE 09/03/18 09/04/18 09/04/18 19:47 00:51 05:57 WBC 5.3 RBC 4.60 Hgb 13.2 Hct 39.4 MCV 86 MCH 28.7 MCHC 33.6 RDW 14.4 H Plt Count 352 Seg Neutrophils % Not Reportable Lymphocytes % Not Reportable Monocytes % Not Reportable Eosinophils % Not Reportable Basophils % Not Reportable Absolute Neutrophils Not Reportable Absolute Lymphocytes Not Reportable Absolute Monocytes Not Reportable Absolute Eosinophils Not Reportable Absolute Basophils Not Reportable Sodium 136.5 L Potassium 5.6 H Chloride 106 Carbon Dioxide 21 L Anion Gap 10 BUN 41 H Creatinine 1.65 H Est GFR ( Amer) 37 L Est GFR (Non-Af Amer) 30 L Glucose 154 H Calcium 10.7 H Total Bilirubin AST ALT Alkaline Phosphatase Total Protein Albumin PTH Intact Urine Color YELLOW Urine Appearance SLIGHTLY-CLOUDY Urine pH 6.0 Ur Specific [place] 1.016 Urine Protein 30 H Urine Glucose (UA) NEGATIVE Urine Ketones TRACE H Urine Blood NEGATIVE Urine Nitrite NEGATIVE Ur Leukocyte Esterase NEGATIVE Urine WBC (Auto) 3 Urine RBC (Auto) 9 Blood Type Antibody Screen 09/04/18 09/04/18 05:57 05:57 WBC RBC Hgb Hct MCV MCH MCHC RDW Plt Count Seg Neutrophils % Lymphocytes % Monocytes % Eosinophils % Basophils % Absolute Neutrophils Absolute Lymphocytes Absolute Monocytes Absolute Eosinophils Absolute Basophils Sodium 139.9 Potassium 5.4 H Chloride 108 H Carbon Dioxide 25 Anion Gap 7 BUN 33 H Creatinine 1.40 H Est GFR ( Amer) 44 L Est GFR (Non-Af Amer) 37 L Glucose 119 H Calcium 9.6 Total Bilirubin AST ALT Alkaline Phosphatase Total Protein Albumin PTH Intact 171.8 H Urine Color Urine Appearance Urine pH Ur Specific [place] Urine Protein Urine Glucose (UA) Urine Ketones Urine Blood Urine Nitrite Ur Leukocyte Esterase Urine WBC (Auto) Urine RBC (Auto) Blood Type Antibody Screen Impressions: Hip X-Ray 09/03/18 00:00 IMPRESSION: Subcapital fracture of the left femur. Chest X-Ray 09/03/18 19:33 IMPRESSION: No evidence of acute cardiopulmonary disease. Age-indeterminate left-sided fractures, some of which are chronic. Assessment and Plan - Diagnosis (1) Left femoral shaft fracture Qualifiers: Encounter type: initial encounter Fracture type: closed Fracture alignment: nondisplaced Is this a current diagnosis for this admission?: Yes Plan: Pain control. Definitive management per orthopedic surgeon (2) Hyperkalemia Is this a current diagnosis for this admission?: Yes Plan: Improving (3) Acute kidney injury Is this a current diagnosis for this admission?: Yes Plan: Improving (4) COPD (chronic obstructive pulmonary disease) Qualifiers: Emphysema type: unspecified Is this a current diagnosis for this admission?: Yes Plan: Continue PRN bronchodilators. (5) Tobacco dependence Is this a current diagnosis for this admission?: Yes Plan: Patient encouraged and counseled to quit smoking.
--- NOTE | 2018-09-04 14:05 | CONSULTATION REPORT E ---
Consultation Report NAME: KASIA LÓPEZ : 1945 AGE: 73Y DATE: 09/04/2018 331 A TO: ALEXX DANIELS M.D. FROM: KIET ARITA M.D. Requesting Physician CONSULTING PHYSICIAN: Herbert Multani M.D. REASON FOR CONSULTATION: Left hip displaced femoral neck fracture. HISTORY OF PRESENT ILLNESS: The patient is a pleasant 73-year-old woman who was ambulating at home yesterday without her cane and sustained a fall from a standing height. She presented to the emergency room at [facility] and was found to have a displaced fracture of the left femoral neck. In the emergency department, she was also found to have acute renal failure with hyperkalemia and hypercalcemia. She was admitted to the medical service. PAST MEDICAL HISTORY: 1. Hypertension. 2. Chronic obstructive pulmonary disease. PAST SURGICAL HISTORY: Appendectomy. HOME MEDICATIONS: 1. Alprazolam ER 0.5 mg p.o. b.i.d. 2. Celebrex 200 mg p.o. b.i.d. 3. Citalopram 10 mg p.o. daily. 4. Advair Diskus 1 inhalation b.i.d. 5. Neurontin 600 mg p.o. q. 8 hours. 6. [place] 1 tab p.o. q. 8 hours as needed. 7. Zanaflex 4 mg p.o. q. 8 hours p.r.n. 8. Anoro Ellipta 1 puff daily. ALLERGIES: None. FAMILY HISTORY: Positive coronary artery disease. SOCIAL HISTORY: The patient is a current smoker. She smokes approximately one-half pack of cigarettes per day. PHYSICAL EXAMINATION: GENERAL: She is a pleasant, well-appearing woman in no acute distress. She is alert and appropriate. VITAL SIGNS: Temperature 98.4, blood pressure yesterday 152/77 with a pulse of 98, respirations 18. HEENT: Normocephalic, atraumatic. Extraocular movements intact. NECK: Supple. PULMONARY: Clear. CARDIAC: Regular rate and rhythm. ABDOMEN: Soft. EXTREMITIES: Examination of the left lower extremity: The left leg is shortened and externally rotated. She is able to dorsiflex and plantarflex her foot. Sensation is intact to touch. LABORATORY FINDINGS: Today, white count 5.3, hemoglobin 13.2, platelets 352. Chemistry today: Sodium 139, potassium 5.4, BUN 33, creatinine 1.4. PT and INR from 09/03 of 13.1 and 0.94. RADIOGRAPHS: AP and lateral radiographs of the left hip independently reviewed. There displays the subcapital fracture of the left femoral neck. Cortices are good. IMPRESSION: Left hip displaced femoral neck fracture. PLAN: I have recommended left hip hemiarthroplasty. Risks, benefits, and alternatives were discussed with the patient. Risks include the risk of of anesthesia, the risk of infection, the risk of dislocation, the risk of fracture, the risk of injury to nerves and vessels, and the possible need for additional surgical procedures. The patient was offered an opportunity for questions. All questions were answered to her satisfaction, and she expressed understanding. The patient agreed and elected to proceed with the surgery. She will be n.p.o. after midnight tonight. Surgery tomorrow, 09/05/2018. DICTATING PHYSICIAN: ALEXX DANIELS M.D. [id number] PHY#: [id number] ID: [id number] JOB#: [id number] ACCT: [id number] cc:ALEXX DANIELS M.D. >
[2018-09-04] MEDS: HYDROMORPHONE HCL INJ/PF 2 MG/ML AMPULE IV PRN ×6 (14:08→22:03)
[2018-09-04] MEDS: NICOTINE 14 MG/24 HR PATCH.TD24 TD SCH (14:54)
[2018-09-04] MEDS: FENTANYL 50 MCG/HR PATCH.TD72 TD SCH (14:54)
[2018-09-04] MEDS ORDERED: ALPRAZOLAM 0.5 MG TABLET PO PRN (15:34)
[2018-09-04 15:49] LABS: HEMATOCRIT 38.7 % (36.0-47.0); MEAN CORPUSCULAR HEMOGLOBIN 28.8 pg (27.0-33.4); MEAN CORPUSCULAR HGB CONC 33.6 g/dL (32.0-36.0); MEAN CORPUSCULAR VOLUME 86 fl (80-97); PLATELET COUNT 315 10^3/uL (150-450); RED BLOOD COUNT 4.51 10^6/uL (3.72-5.28); RED CELL DISTRIBUTION WIDTH 14.4 % (11.5-14.0); WHITE BLOOD COUNT 6.1 10^3/uL (4.0-10.5)
[2018-09-04 16:02] LABS: ANION GAP 6 (5-19); BLOOD UREA NITROGEN 23 mg/dL (7-20); CALCIUM 9.4 mg/dL (8.4-10.2); CARBON DIOXIDE 26 mmol/L (22-30); CHLORIDE 106 mmol/L (98-107); GLUCOSE 104 mg/dL (75-110); SODIUM 138.1 mmol/L (137-145)
[2018-09-04 16:18] LABS: ABSOLUTE LYMPHOCYTES# (MANUAL) 1.6 10^3/uL (0.5-4.7); ABSOLUTE MONOCYTES # (MANUAL) 0.4 10^3/uL (0.1-1.4); ABSOLUTE NEUTROPHILS# (MANUAL) 3.9 10^3/uL (1.7-8.2); BASOPHILS % (MANUAL) 0 % (0-2); EOSINOPHILS % (MANUAL) 4 % (0-6); LYMPHOCYTES % (MANUAL) 26 % (13-45); MONOCYTES % (MANUAL) 6 % (3-13); SEGMENTED NEUTROPHILS % (MAN) 64 % (42-78); TOTAL CELLS COUNTED 100
[2018-09-04 16:19] LABS: PLATELET COMMENT ADEQUATE
[2018-09-04 16:20] LABS: ANISOCYTOSIS SLIGHT; HYPOCHROMASIA SLIGHT
[2018-09-04] MEDS ORDERED: PROMETHAZINE HCL INJ 25 MG/1 ML VIAL ONE (17:11)
[2018-09-04] MEDS ORDERED: PROMETHAZINE HCL INJ 25 MG/1 ML VIAL IV PRN (18:04)
[2018-09-04] MEDS ORDERED: ONDANSETRON 4 MG TAB.RAPDIS PO PRN (18:05)
[2018-09-04 20:46] LABS: ANION GAP 6 (5-19); BLOOD UREA NITROGEN 23 mg/dL (7-20); CALCIUM 9.5 mg/dL (8.4-10.2); CARBON DIOXIDE 27 mmol/L (22-30); CHLORIDE 104 mmol/L (98-107); GLUCOSE 143 mg/dL (75-110); POTASSIUM 5.8 mmol/L (3.6-5.0); SODIUM 136.6 mmol/L (137-145)
[2018-09-04] MEDS ORDERED: INSULIN REG, HUMAN 100 UNIT/ML 3 ML VIAL (PYX) IV ONE (21:00)
[2018-09-05] MEDS: NORMAL SALINE 1000 ML 1,000 ML IV PRN (01:41)
[2018-09-05 06:06] LABS: HEMATOCRIT 38.9 % (36.0-47.0); MEAN CORPUSCULAR HEMOGLOBIN 28.9 pg (27.0-33.4); MEAN CORPUSCULAR HGB CONC 33.5 g/dL (32.0-36.0); MEAN CORPUSCULAR VOLUME 86 fl (80-97); PLATELET COUNT 303 10^3/uL (150-450); RED BLOOD COUNT 4.52 10^6/uL (3.72-5.28); RED CELL DISTRIBUTION WIDTH 14.4 % (11.5-14.0); WHITE BLOOD COUNT 5.2 10^3/uL (4.0-10.5)
[2018-09-05 06:12] LABS: ANION GAP 7 (5-19); BLOOD UREA NITROGEN 19 mg/dL (7-20); CALCIUM 9.7 mg/dL (8.4-10.2); CARBON DIOXIDE 24 mmol/L (22-30); CHLORIDE 107 mmol/L (98-107); GLUCOSE 87 mg/dL (75-110); POTASSIUM 5.5 mmol/L (3.6-5.0); SODIUM 138.4 mmol/L (137-145)
[2018-09-05] MEDS: HYDROMORPHONE HCL INJ/PF 2 MG/ML AMPULE IV PRN ×7 (06:14→21:02)
[2018-09-05] MEDS: HEPARIN SOD (PORCINE) 5,000 UNIT/ML 1 ML SYRINGE SUBCUT SCH ×3 (06:22→21:50)
[2018-09-05] MEDS ORDERED: FENTANYL CITRATE INJ/PF 100 MCG/2 ML AMPUL ONE (06:39)
[2018-09-05] MEDS ORDERED: DEXAMETHASONE SOD PHOSPHATE INJ 4 MG/1 ML VIAL ONE (06:40)
[2018-09-05] MEDS ORDERED: MIDAZOLAM 2 MG/2 ML INJ ONE (06:40)
[2018-09-05] MEDS ORDERED: PROPOFOL INJ 200 MG/20 ML VIAL IV ONE (06:40)
[2018-09-05] MEDS ORDERED: EPHEDRINE SULFATE INJ 50 MG/1 ML AMPULE ONE (06:40)
[2018-09-05] MEDS ORDERED: ONDANSETRON HCL INJ/PF 4 MG/2 ML SDV ONE (06:40)
[2018-09-05] MEDS: CITALOPRAM HYDROBROMIDE 20 MG TABLET PO SCH (12:02)
[2018-09-05] MEDS ORDERED: BACITRACIN INJ 50,000 UNIT VIAL ONE (12:34)
[2018-09-05] MEDS ORDERED: BUPIVACAINE INJ/PF LIPOSOME/PF 266 MG/20 ML SDV ONE (12:34)
[2018-09-05] MEDS ORDERED: KETAMINE HCL INJ 500 MG/10 ML VIAL ONE (12:34)
[2018-09-05] MEDS ORDERED: IPRATROPIUM/ALBUTEROL 0.5-2.5 MG/3 ML AMPUL NEB ONE ×2 (12:40→16:08)
[2018-09-05] MEDS ORDERED: CEFAZOLIN INJ 1 GM VIAL ONE (13:46)
[2018-09-05] MEDS ORDERED: SODIUM POLYSTYRENE SULFONATE 15 GM/60 ML PO ONE ×2 (14:00)
[2018-09-05] MEDS ORDERED: NICOTINE 14 MG/24 HR PATCH.TD24 TD SCH (14:00)
[2018-09-05] MEDS ORDERED: DIPHENHYDRAMINE HCL 50 MG/ML VIAL IV PRN (14:28)
[2018-09-05] MEDS ORDERED: MORPHINE SULFATE 10 MG/ML INJ IV PRN (14:28)
[2018-09-05] MEDS ORDERED: FENTANYL CITRATE INJ/PF 100 MCG/2 ML AMPUL IV PRN ×3 (14:28)
[2018-09-05] MEDS ORDERED: PROMETHAZINE HCL INJ 25 MG/1 ML VIAL IV PRN ×2 (14:28)
[2018-09-05] MEDS ORDERED: ONDANSETRON HCL INJ/PF 4 MG/2 ML SDV IV PRN (14:28)
[2018-09-05] MEDS ORDERED: MEPERIDINE HCL/PF INJ 25 MG/1 ML DISP.SYRIN IV PRN (14:28)
[2018-09-05 14:42] LABS: VITAMIN D 1,25 DIHYDROXY 23.6 pg/mL (19.9-79.3)
--- NOTE | 2018-09-05 15:06 | PDOC PROGRESS REPORT ---
Subjective Progress Note for:: 09/05/18 Subjective:: Patient still complains of pain at the fracture site. She is scheduled for orthopedic procedure this morning. Otherwise her blood works are improving acute kidney injury resolved that her creatinine was yesterday 2.1 today it is 0.99 and her hyperkalemia is also improving from 6.2-5. Reason For Visit: LEFT HIP FX,MAGDI,HYPERKALEMIA,HYPERCALCEMIA Physical Exam Vital Signs: Temp Pulse Resp BP Pulse Ox 97.2 F 75 16 120/59 L 100 09/04/18 23:30 09/05/18 02:00 09/04/18 23:30 09/04/18 23:30 09/04/18 23:30 Intake & Output 09/04/18 09/05/18 09/06/18 06:59 06:59 06:59 Intake Total 1999 1325 1000 Output Total 725 2225 Balance 1275 -900 1000 Weight 39.8 kg 39.8 kg General appearance: PRESENT: no acute distress Head exam: PRESENT: atraumatic Neck exam: ABSENT: carotid bruit, JVD, lymphadenopathy, thyromegaly Respiratory exam: PRESENT: clear to auscultation mirna. ABSENT: rales, rhonchi, wheezes Cardiovascular exam: PRESENT: RRR. ABSENT: diastolic murmur, rubs, systolic murmur Neurological exam: PRESENT: alert, awake Results Laboratory Results: 09/05/18 05:27 09/05/18 05:27 09/04/18 09/04/18 09/04/18 15:25 15:25 20:23 WBC 6.1 RBC 4.51 Hgb 13.0 Hct 38.7 MCV 86 MCH 28.8 MCHC 33.6 RDW 14.4 H Plt Count 315 Seg Neutrophils % Not Reportable Lymphocytes % Not Reportable Monocytes % Not Reportable Eosinophils % Not Reportable Basophils % Not Reportable Absolute Neutrophils Not Reportable Absolute Lymphocytes Not Reportable Absolute Monocytes Not Reportable Absolute Eosinophils Not Reportable Absolute Basophils Not Reportable Sodium 138.1 136.6 L Potassium 5.0 5.8 H Chloride 106 104 Carbon Dioxide 26 27 Anion Gap 6 6 BUN 23 H 23 H Creatinine 1.12 1.21 Est GFR ( Amer) 57 L 52 L Est GFR (Non-Af Amer) 47 L 43 L Glucose 104 143 H Calcium 9.4 9.5 09/05/18 09/05/18 05:27 05:27 WBC 5.2 RBC 4.52 Hgb 13.0 Hct 38.9 MCV 86 MCH 28.9 MCHC 33.5 RDW 14.4 H Plt Count 303 Seg Neutrophils % Lymphocytes % Monocytes % Eosinophils % Basophils % Absolute Neutrophils Absolute Lymphocytes Absolute Monocytes Absolute Eosinophils Absolute Basophils Sodium 138.4 Potassium 5.5 H Chloride 107 Carbon Dioxide 24 Anion Gap 7 BUN 19 Creatinine 0.99 Est GFR ( Amer) > 60 Est GFR (Non-Af Amer) 55 L Glucose 87 Calcium 9.7 Impressions: Hip X-Ray 09/03/18 00:00 IMPRESSION: Subcapital fracture of the left femur. Chest X-Ray 09/03/18 19:33 IMPRESSION: No evidence of acute cardiopulmonary disease. Age-indeterminate left-sided fractures, some of which are chronic. Assessment and Plan - Diagnosis (1) Left femoral shaft fracture Qualifiers: Encounter type: initial encounter Fracture type: closed Fracture alignment: nondisplaced Is this a current diagnosis for this admission?: Yes Plan: Pain control. Definitive management per orthopedic surgeon (2) Hyperkalemia Is this a current diagnosis for this admission?: Yes Plan: Resolving (3) Acute kidney injury Is this a current diagnosis for this admission?: Yes Plan: Resolve (4) COPD (chronic obstructive pulmonary disease) Qualifiers: Emphysema type: unspecified Is this a current diagnosis for this admission?: Yes Plan: Continue PRN bronchodilators. (5) Tobacco dependence Is this a current diagnosis for this admission?: Yes Plan: Patient encouraged and counseled to quit smoking.
--- NOTE | 2018-09-05 16:10 | RADIOLOGY REPORT (SQ) ---
EXAM DESCRIPTION: HIP LEFT AP/LATERAL COMPLETED DATE/TIME: 09/05/2018 3:56 pm REASON FOR STUDY: LEFT HIP ARTHROPLASTY COMPARISON: None. NUMBER OF VIEWS: Two view(s). TECHNIQUE: Digital radiographic images of the left hip post-procedure. LIMITATIONS: None. FINDINGS: BONES: No worrisome or unexpected findings post-procedure. DEVICE: Total hip replacement. Components of the device in appropriate location. SOFT TISSUES: No worrisome findings. Expected postoperative soft tissue changes. IMPRESSION: SATISFACTORY POSTOPERATIVE LEFT HIP. TECHNICAL DOCUMENTATION: JOB ID: [id number] [employer]- All Rights Reserved Reading location - IP/workstation name: [email or web address]
--- NOTE | 2018-09-05 19:45 | OPERATIVE REPORT E ---
Operative Report NAME: KASIA LÓPEZ : 1945 AGE: 73Y DATE OF SURGERY: 09/05/2018 ROOM: 331 PREOPERATIVE DIAGNOSIS: LEFT DISPLACED FEMORAL NECK FRACTURE. POSTOPERATIVE DIAGNOSIS: LEFT DISPLACED FEMORAL NECK FRACTURE. OPERATION: Left hip hemiarthroplasty. SURGEON: ALEXX DANIELS M.D. ANESTHESIA: Spinal. BLOOD LOSS: 150 mL. COMPLICATIONS: None. IMPLANTS: 1. [facility] [employer] Unitrax endoprosthesis, site component 42 mm [facility]. 2. [facility] [employer] Accolade II, stem size 3, 30 mm neck length. 3. [employer] Unitrax -4 mm neck. INDICATIONS FOR PROCEDURE: The patient is a 73-year-old woman who sustained a fall at home, resulting in a displaced fracture of the left femoral neck. DESCRIPTION OF PROCEDURE: Following induction of spinal anesthetic administration of antibiotics the patient was positioned on a peg board in the lateral position. The left lower extremity was sterilely prepped with ChloraPrep and draped in the standard fashion. A posterior approach to the hip was performed. Sharp incision through the skin, blunt dissection to the fascia. The fascia was split, Charnley retractor placed. External rotators taken off the hip. Femoral head removed and sized. Femoral canal entered followed by box osteotome. Sequential broaching performed to a size 3. Trial implants were placed. The hip was taken to a full range of motion and with a -4 neck there was excellent stability. The trial implants were removed. Irrigation was performed with pulsatile lavage. Regular implants were placed. Reduction was performed. The hip was taken to a full range of motion demonstrating good stability. Additional copious irrigation was performed with pulsatile lavage. The external rotators were repaired through bone back to the greater trochanter. Additional irrigation was performed. The fascia was reapproximated with #1 Vicryl. Deep injection of local anesthetic was performed at this point followed by additional superficial irrigation, subcutaneous tissue closure with 2-0 Vicryl, skin reapproximation with yeny, and a sterile dressing was applied. This patient tolerated the procedure well without complications and was brought to recovery room in stable condition. DICTATING PHYSICIAN: ALEXX DANIELS M.D. [id number] Y#: [id number] ID: [id number] JOB#: [id number] ACCT: [id number] cc:ALEXX DANIELS M.D. >
[2018-09-05] MEDS: NICOTINE 14 MG/24 HR PATCH.TD24 TD SCH (19:56)
[2018-09-05] MEDS: FENTANYL CITRATE INJ/PF 100 MCG/2 ML AMPUL IV PRN (19:59)
[2018-09-05 21:34] LABS: BLOOD UREA NITROGEN 17 mg/dL (7-20); CALCIUM 9.4 mg/dL (8.4-10.2); GLUCOSE 166 mg/dL (75-110); POTASSIUM 5.5 mmol/L (3.6-5.0)
[2018-09-05 21:39] LABS: ANION GAP 7 (5-19); CARBON DIOXIDE 24 mmol/L (22-30); CHLORIDE 106 mmol/L (98-107); SODIUM 136.9 mmol/L (137-145)
[2018-09-05] MEDS: CEFAZOLIN 1 GM/D5W RTU 1 GM/50 ML RTUPB IV SCH (21:49)
[2018-09-05] MEDS ORDERED: CEFAZOLIN SODIUM 1.5 GM in DEXTROSE 5%-WATER 100 ML IV SCH (22:00)
[2018-09-06] MEDS: HYDROMORPHONE HCL INJ/PF 2 MG/ML AMPULE IV PRN ×3 (00:16→21:34)
[2018-09-06] MEDS: NORMAL SALINE 1000 ML 1,000 ML IV PRN ×3 (04:01→22:51)
[2018-09-06 05:01] LABS: HEMATOCRIT 30.4 % (36.0-47.0); MEAN CORPUSCULAR HEMOGLOBIN 29.4 pg (27.0-33.4); MEAN CORPUSCULAR VOLUME 86 fl (80-97); PLATELET COUNT 272 10^3/uL (150-450); RED BLOOD COUNT 3.52 10^6/uL (3.72-5.28); RED CELL DISTRIBUTION WIDTH 14.6 % (11.5-14.0); WHITE BLOOD COUNT 6.5 10^3/uL (4.0-10.5)
[2018-09-06 05:03] LABS: HEMOGLOBIN 10.4 g/dL (12.0-15.5)
[2018-09-06 05:24] LABS: BLOOD UREA NITROGEN 17 mg/dL (7-20); CALCIUM 9.4 mg/dL (8.4-10.2); CARBON DIOXIDE 26 mmol/L (22-30); CHLORIDE 109 mmol/L (98-107); GLUCOSE 98 mg/dL (75-110); POTASSIUM 5.1 mmol/L (3.6-5.0)
[2018-09-06 06:05] LABS: ANION GAP 4 (5-19)
[2018-09-06] MEDS: CEFAZOLIN 1 GM/D5W RTU 1 GM/50 ML RTUPB IV SCH ×3 (06:26→21:34)
[2018-09-06] MEDS: HEPARIN SOD (PORCINE) 5,000 UNIT/ML 1 ML SYRINGE SUBCUT SCH ×3 (06:29→21:33)
[2018-09-06] MEDS: CITALOPRAM HYDROBROMIDE 20 MG TABLET PO SCH (10:51)
[2018-09-06] MEDS: ASPIRIN 81 MG TABLET, CHEWABLE PO SCH (10:51)
[2018-09-06] MEDS: NICOTINE 14 MG/24 HR PATCH.TD24 TD SCH (10:52)
--- NOTE | 2018-09-06 14:59 | PDOC PROGRESS REPORT ---
Subjective Progress Note for:: 09/06/18 Subjective:: Patient seen lying in bed comfortably. She is awake alert oriented. She is not in pain or distress her pain is well controlled. Today's her postop # 1. She undergone left hip hemiarthroplasty. She is able to participate with physical therapy and she is a candidate for short-term acute rehab less than 30 days. Reason For Visit: LEFT HIP FX,MAGDI,HYPERKALEMIA,HYPERCALCEMIA Physical Exam Vital Signs: Temp Pulse Resp BP Pulse Ox 98.5 F 89 15 114/60 93 09/06/18 11:49 09/06/18 11:49 09/06/18 11:49 09/06/18 11:49 09/06/18 11:49 Intake & Output 09/05/18 09/06/18 09/07/18 06:59 06:59 06:59 Intake Total 1325 3950 1200 Output Total 2225 1240 500 Balance -900 2710 700 Weight 39.8 kg 46.3 kg General appearance: PRESENT: no acute distress Head exam: PRESENT: atraumatic Eye exam: PRESENT: conjunctiva pink Neck exam: ABSENT: carotid bruit, JVD, lymphadenopathy, thyromegaly Respiratory exam: PRESENT: clear to auscultation mirna. ABSENT: rales, rhonchi, wheezes Cardiovascular exam: PRESENT: RRR. ABSENT: diastolic murmur, rubs, systolic murmur Neurological exam: PRESENT: alert, awake, oriented to person, oriented to place, oriented to time, oriented to situation Results Laboratory Results: 09/06/18 04:16 09/06/18 04:16 09/05/18 09/06/18 09/06/18 20:44 04:16 04:16 WBC 6.5 RBC 3.52 L Hgb 10.4 L D Hct 30.4 L MCV 86 MCH 29.4 MCHC 34.0 RDW 14.6 H Plt Count 272 Sodium 136.9 L 139.0 Potassium 5.5 H 5.1 H Chloride 106 109 H Carbon Dioxide 24 26 Anion Gap 7 4 L BUN 17 17 Creatinine 0.85 0.84 Est GFR ( Amer) > 60 > 60 Est GFR (Non-Af Amer) > 60 > 60 Glucose 166 H 98 Calcium 9.4 9.4 Impressions: Chest X-Ray 09/03/18 19:33 IMPRESSION: No evidence of acute cardiopulmonary disease. Age-indeterminate left-sided fractures, some of which are chronic. Hip X-Ray 09/05/18 00:00 IMPRESSION: SATISFACTORY POSTOPERATIVE LEFT HIP. Assessment and Plan - Diagnosis (1) Left femoral shaft fracture Qualifiers: Encounter type: initial encounter Fracture type: closed Fracture alignment: nondisplaced Is this a current diagnosis for this admission?: Yes Plan: Pain control. Status post left hip hemiarthroplasty Postop #1. (2) Hyperkalemia Is this a current diagnosis for this admission?: Yes Plan: Resolved (3) Acute kidney injury Is this a current diagnosis for this admission?: Yes Plan: Resolve (4) COPD (chronic obstructive pulmonary disease) Qualifiers: Emphysema type: unspecified Is this a current diagnosis for this admission?: Yes Plan: Continue PRN bronchodilators. (5) Tobacco dependence Is this a current diagnosis for this admission?: Yes Plan: Patient encouraged and counseled to quit smoking.
[2018-09-06 20:32] LABS: ANION GAP 6 (5-19); BLOOD UREA NITROGEN 17 mg/dL (7-20); CALCIUM 9.9 mg/dL (8.4-10.2); CARBON DIOXIDE 26 mmol/L (22-30); CHLORIDE 107 mmol/L (98-107); GLUCOSE 142 mg/dL (75-110); POTASSIUM 4.8 mmol/L (3.6-5.0)
[2018-09-07 05:03] LABS: HEMOGLOBIN 10.4 g/dL (12.0-15.5); MEAN CORPUSCULAR HEMOGLOBIN 28.8 pg (27.0-33.4); MEAN CORPUSCULAR HGB CONC 33.7 g/dL (32.0-36.0); MEAN CORPUSCULAR VOLUME 85 fl (80-97); PLATELET COUNT 304 10^3/uL (150-450); RED BLOOD COUNT 3.63 10^6/uL (3.72-5.28); RED CELL DISTRIBUTION WIDTH 14.2 % (11.5-14.0); WHITE BLOOD COUNT 6.4 10^3/uL (4.0-10.5)
[2018-09-07] MEDS: HYDROMORPHONE HCL INJ/PF 2 MG/ML AMPULE IV PRN ×2 (06:08→16:59)
[2018-09-07] MEDS: CEFAZOLIN 1 GM/D5W RTU 1 GM/50 ML RTUPB IV SCH ×3 (06:08→21:05)
[2018-09-07] MEDS: HEPARIN SOD (PORCINE) 5,000 UNIT/ML 1 ML SYRINGE SUBCUT SCH ×3 (06:09→21:05)
[2018-09-07] MEDS: NORMAL SALINE 1000 ML 1,000 ML IV PRN ×2 (07:00→16:52)
[2018-09-07] MEDS: CITALOPRAM HYDROBROMIDE 20 MG TABLET PO SCH (10:48)
[2018-09-07] MEDS: NICOTINE 14 MG/24 HR PATCH.TD24 TD SCH (10:48)
[2018-09-07] MEDS: ASPIRIN 81 MG TABLET, CHEWABLE PO SCH (10:48)
[2018-09-07] MEDS ORDERED: IPRATROPIUM/ALBUTEROL 0.5-2.5 MG/3 ML AMPUL NEB PRN (12:52)
--- NOTE | 2018-09-07 13:49 | PDOC PROGRESS REPORT ---
Subjective Progress Note for:: 09/07/18 Subjective:: Seen sleeping quietly. The nurse in charge of her reported that she has some wheezing. With her vital signs are stable and her blood works are unremarkable. Patient qualifies for short-term inpatient rehab for less than 30 days. Reason For Visit: LEFT HIP FX,MAGDI,HYPERKALEMIA,HYPERCALCEMIA Physical Exam Vital Signs: Temp Pulse Resp BP Pulse Ox 97.9 F 93 16 151/68 H 97 09/07/18 11:03 09/07/18 11:03 09/07/18 11:03 09/07/18 11:03 09/07/18 11:03 Intake & Output 09/06/18 09/07/18 09/08/18 06:59 06:59 06:59 Intake Total 3950 2700 Output Total 1240 1400 1400 Balance 2710 1300 -1400 Weight 46.3 kg 45.3 kg General appearance: PRESENT: no acute distress Eye exam: PRESENT: conjunctiva pink Neck exam: ABSENT: carotid bruit, JVD, lymphadenopathy, thyromegaly Respiratory exam: PRESENT: clear to auscultation mirna. ABSENT: rales, rhonchi, wheezes Cardiovascular exam: PRESENT: RRR. ABSENT: diastolic murmur, rubs, systolic murmur GI/Abdominal exam: PRESENT: normal bowel sounds, soft. ABSENT: distended, guarding, mass, organolmegaly, rebound, tenderness Results Laboratory Results: 09/07/18 04:31 09/06/18 20:00 09/06/18 09/07/18 20:00 04:31 WBC 6.4 RBC 3.63 L Hgb 10.4 L Hct 31.0 L MCV 85 MCH 28.8 MCHC 33.7 RDW 14.2 H Plt Count 304 Sodium 139.0 Potassium 4.8 Chloride 107 Carbon Dioxide 26 Anion Gap 6 BUN 17 Creatinine 0.76 Est GFR ( Amer) > 60 Est GFR (Non-Af Amer) > 60 Glucose 142 H Calcium 9.9 Impressions: Chest X-Ray 09/03/18 19:33 IMPRESSION: No evidence of acute cardiopulmonary disease. Age-indeterminate left-sided fractures, some of which are chronic. Hip X-Ray 09/05/18 00:00 IMPRESSION: SATISFACTORY POSTOPERATIVE LEFT HIP. Assessment and Plan - Diagnosis (1) Left femoral shaft fracture Qualifiers: Encounter type: initial encounter Fracture type: closed Fracture alignment: nondisplaced Is this a current diagnosis for this admission?: Yes Plan: Pain control. Status post left hip hemiarthroplasty Postop #1. (2) Hyperkalemia Is this a current diagnosis for this admission?: Yes Plan: Resolved (3) Acute kidney injury Is this a current diagnosis for this admission?: Yes Plan: Resolve (4) COPD (chronic obstructive pulmonary disease) Qualifiers: Emphysema type: unspecified Is this a current diagnosis for this admission?: Yes Plan: Continue PRN bronchodilators. (5) Tobacco dependence Is this a current diagnosis for this admission?: Yes Plan: Patient encouraged and counseled to quit smoking.
[2018-09-07] MEDS: FENTANYL 50 MCG/HR PATCH.TD72 TD SCH (14:43)
[2018-09-07 20:45] LABS: BLOOD UREA NITROGEN 12 mg/dL (7-20); GLUCOSE 88 mg/dL (75-110); POTASSIUM 3.8 mmol/L (3.6-5.0)
[2018-09-07 20:51] LABS: CARBON DIOXIDE 28 mmol/L (22-30); CHLORIDE 107 mmol/L (98-107); SODIUM 138.2 mmol/L (137-145)
[2018-09-07 20:55] LABS: ANION GAP 3 (5-19)
[2018-09-08] MEDS: NORMAL SALINE 1000 ML 1,000 ML IV PRN ×2 (01:46→15:35)
[2018-09-08] MEDS: CEFAZOLIN 1 GM/D5W RTU 1 GM/50 ML RTUPB IV SCH ×3 (06:00→22:54)
[2018-09-08] MEDS: HEPARIN SOD (PORCINE) 5,000 UNIT/ML 1 ML SYRINGE SUBCUT SCH ×3 (06:02→22:54)
[2018-09-08 07:04] LABS: PTH RELATED PEPTIDE <2.0 pmol/L (.)
[2018-09-08] MEDS: CHOLECALCIFEROL (D3) 1,000 UNIT TABLET PO SCH (10:27)
[2018-09-08] MEDS: NICOTINE 14 MG/24 HR PATCH.TD24 TD SCH (10:27)
[2018-09-08] MEDS: CITALOPRAM HYDROBROMIDE 20 MG TABLET PO SCH (10:27)
[2018-09-08] MEDS: ASPIRIN 81 MG TABLET, CHEWABLE PO SCH (10:27)
--- NOTE | 2018-09-08 14:45 | PDOC PROGRESS REPORT ---
Subjective Subjective:: This is 73 years old female patient with past medical history of hypertension, COPD, history of DVT, GI bleeding and tobacco dependence presented with chief complaint of left hip pain after she involved in a mechanical fall and landed on her left side. Her pelvic x-ray reported as subcapital fracture of the left femur. Her blood work shows hyperkalemia with potassium of 6.2 and after treatment to date is 5.4 and acute kidney injury with creatinine of 2.01 and after careful hydration her creatinine dropped to 1.40. This morning I seen patient lying on her back and complaining of excruciating pain at the fracture site. She is given fentanyl and morphine sulfate. She undergone left hemiarthroplasty. Pain is well controlled. 08/08/2018: This morning patient seen sitting on recliner and enjoying her breakfast. She is awake alert oriented she is not in pain or distress. Her pain adequately controlled. She is awaiting placement to rehab. Reason For Visit: LEFT HIP FX,MAGDI,HYPERKALEMIA,HYPERCALCEMIA Physical Exam Vital Signs: Temp Pulse Resp BP Pulse Ox 98.8 F 66 20 130/61 H 100 09/08/18 12:48 09/08/18 12:48 09/08/18 12:48 09/08/18 12:48 09/08/18 12:48 Intake & Output 09/07/18 09/08/18 09/09/18 06:59 06:59 06:59 Intake Total 3700 2100 Output Total 1400 2675 Balance 2300 -575 Weight 45.3 kg 46.6 kg General appearance: PRESENT: no acute distress, thin Head exam: PRESENT: atraumatic Neck exam: ABSENT: carotid bruit, JVD, lymphadenopathy, thyromegaly Respiratory exam: PRESENT: clear to auscultation mirna, wheezes. ABSENT: rales, rhonchi Cardiovascular exam: PRESENT: RRR. ABSENT: diastolic murmur, rubs, systolic murmur GI/Abdominal exam: PRESENT: normal bowel sounds, soft. ABSENT: distended, guard ing, mass, organolmegaly, rebound, tenderness Neurological exam: PRESENT: alert, awake, oriented to person, oriented to place, oriented to time, oriented to situation Results Laboratory Results: 09/07/18 04:31 09/07/18 20:15 09/07/18 20:15 Sodium 138.2 Potassium 3.8 Chloride 107 Carbon Dioxide 28 Anion Gap 3 L BUN 12 Creatinine 0.65 Est GFR ( Amer) > 60 Est GFR (Non-Af Amer) > 60 Glucose 88 Calcium 9.0 Impressions: Chest X-Ray 09/03/18 19:33 IMPRESSION: No evidence of acute cardiopulmonary disease. Age-indeterminate left-sided fractures, some of which are chronic. Hip X-Ray 09/05/18 00:00 IMPRESSION: SATISFACTORY POSTOPERATIVE LEFT HIP. Assessment and Plan - Diagnosis (1) Left femoral shaft fracture Qualifiers: Encounter type: initial encounter Fracture type: closed Fracture alignment: nondisplaced Is this a current diagnosis for this admission?: Yes Plan: Pain control. Status post left hip hemiarthroplasty Postop #1. (2) Hyperkalemia Is this a current diagnosis for this admission?: Yes Plan: Resolved (3) Acute kidney injury Is this a current diagnosis for this admission?: Yes Plan: Resolve (4) COPD (chronic obstructive pulmonary disease) Qualifiers: Emphysema type: unspecified Is this a current diagnosis for this admission?: Yes Plan: Continue PRN bronchodilators. (5) Tobacco dependence Is this a current diagnosis for this admission?: Yes
[2018-09-08] MEDS: HYDROMORPHONE HCL INJ/PF 2 MG/ML AMPULE IV PRN (15:44)
[2018-09-08 22:22] LABS: ANION GAP 6 (5-19); BLOOD UREA NITROGEN 14 mg/dL (7-20); CALCIUM 9.2 mg/dL (8.4-10.2); CARBON DIOXIDE 26 mmol/L (22-30); CHLORIDE 105 mmol/L (98-107); GLUCOSE 100 mg/dL (75-110); SODIUM 137.4 mmol/L (137-145)
[2018-09-09] MEDS: NORMAL SALINE 1000 ML 1,000 ML IV PRN ×2 (01:27→09:53)
[2018-09-09] MEDS: HEPARIN SOD (PORCINE) 5,000 UNIT/ML 1 ML SYRINGE SUBCUT SCH ×2 (05:43→14:17)
[2018-09-09] MEDS: CEFAZOLIN 1 GM/D5W RTU 1 GM/50 ML RTUPB IV SCH ×2 (05:43→14:24)
[2018-09-09] MEDS: CITALOPRAM HYDROBROMIDE 20 MG TABLET PO SCH (09:53)
[2018-09-09] MEDS: NICOTINE 14 MG/24 HR PATCH.TD24 TD SCH (09:54)
[2018-09-09] MEDS: ASPIRIN 81 MG TABLET, CHEWABLE PO SCH (09:54)
[2018-09-09] MEDS: CHOLECALCIFEROL (D3) 1,000 UNIT TABLET PO SCH (09:54)
[2018-09-09 15:27] VITALS: BP 123/63
--- NOTE | 2018-09-09 15:31 | PDOC TRANSFER SUMMARY ---
General - Admit/Disc Date/PCP Admission Date/Primary Care Provider: 09/03/18 20:26 LISETTE WHEELER MD Discharge Date: 09/09/18 - Discharge Diagnosis (1) Femur fracture, left Is this a current diagnosis for this admission?: Yes Summary: Surgically repaired by Dr. Cho. Left hemiarthroplasty. The patient requires ongoing physical therapy. Dr. Cho also ordered 7 days of IV cefazolin 1 g every 8 hours. Antibiotics should be completed on September 12. (2) COPD (chronic obstructive pulmonary disease) Is this a current diagnosis for this admission?: Yes Summary: The patient was on nebulizer treatments. Her records indicate that she is on a Anoro Ellipta and Advair. I will resume both and have nebulizers available as needed. (3) Acute kidney injury Is this a current diagnosis for this admission?: Yes Summary: Resolved with IV fluids (4) Tobacco dependence Is this a current diagnosis for this admission?: Yes Summary: Continue nicotine patch and encourage tobacco cessation (5) Depression Is this a current diagnosis for this admission?: Yes Summary: Continue citalopram - Additional Information Resuscitation Status: Full Code Discharge Diet: Regular Discharge Activity: Activity As Tolerated, Balance Activity w/Rest, Energy Conservation Prescriptions: Alprazolam [Xanax 0.5 mg Tablet] 0.5 mg PO BIDP PRN 4 Days #4 tablet PRN Reason: FOR ANXIETY Cefazolin 1 gm/D5w RTU [Ancef RTU 1 gm/D5w 50 ml Premix Bag] 1 gm IV Q8 3 Days #12 ml Fentanyl [Duragesic 50 Mcg/Hr Transdermal Patch] 1 each TD Q3D 3 Days #1 patch.td72 Hydrocodone/Acetaminophen [[place] 5-325 Tablet] 1 each PO Q8HP PRN 2 Days #5 tablet PRN Reason: For Pain Home Medications: Celecoxib [Celebrex 200 mg Capsule] 200 mg PO BIDP PRN 09/03/18 Citalopram Hydrobromide [Citalopram HBr] 10 mg PO DAILY 09/03/18 Fluticasone/Salmeterol [Advair 250-50 Diskus 14 Dose/Diskus] 1 inh IH BID Gabapentin [Neurontin] 600 mg PO Q8 09/03/18 Tizanidine HCl [Zanaflex 4 mg Tablet] 4 mg PO Q8HP PRN 09/03/18 Umeclidinium Brm/Vilanterol Tr [Anoro Ellipta 62.5-25 Mcg INH] 1 puff IH DAILY 09/03/18 Acetaminophen [Tylenol 325 mg Tablet] 650 mg PO Q4HP PRN tablet 09/09/18 Alprazolam [Xanax 0.5 mg Tablet] 0.5 mg PO BIDP PRN 4 Days #4 tablet 09/09/18 Aspirin [Aspirin 81 mg Chewable Tablet] 162 mg PO DAILY tab.chew 09/09/18 Cefazolin 1 gm/D5w RTU [Ancef RTU 1 gm/D5w 50 ml Premix Bag] 1 gm IV Q8 3 Days #12 ml 09/09/18 Cholecalciferol (Vitamin D3) [Vitamin D3 1000 Unit Tablet] 5,000 unit PO DAILY tablet 09/09/18 Fentanyl [Duragesic 50 Mcg/Hr Transdermal Patch] 1 each TD Q3D 3 Days #1 patch.td72 09/09/18 Hydrocodone/Acetaminophen [[place] 5-325 Tablet] 1 each PO Q8HP PRN 2 Days #5 tablet 09/09/18 Ipratropium/Albuterol Sulfate [Duoneb 3 ml Ampul] 3 ml NEB RTQ6HP PRN vial.neb 09/09/18 Nicotine [Nicoderm 14 mg/24 Hr Transdermal Patch] 1 each TD DAILY patch.td24 09/09/18 History of Present Illness Admission Date/PCP: 09/03/18 20:26 LISETTE WHEELER MD Patient complains of: Left hip pain History of Present Illness: KASIA LÓPEZ is a 73 year old female who has a history of gait disorder and was walking without her cane. She sustained a fall with a resultant hip fracture. She underwent left hemiarthroplasty and did well. She will need ongoing rehab at a [facility] facility. We will continue her inhaler regimen, nicotine patch, citalopram and antibiotics that the orthopedic surgeon ordered. Hospital course was otherwise unremarkable. Hospital Course Hospital Course: Patient underwent left hemiarthroplasty. She had an unremarkable hospital course. See above. Physical Exam Vital Signs: Temp Pulse Resp BP Pulse Ox 98.3 F 71 16 128/65 H 95 09/09/18 07:47 09/09/18 14:00 09/09/18 07:47 09/09/18 07:47 09/09/18 07:47 Intake & Output 09/08/18 09/09/18 09/10/18 06:59 06:59 06:59 Intake Total 2150 3385 1050 Output Total 2675 2050 Balance -525 1335 1050 Weight 46.6 kg 46.4 kg General appearance: PRESENT: no acute distress, thin, well-developed Head exam: PRESENT: atraumatic, normocephalic Respiratory exam: PRESENT: clear to auscultation mirna, symmetrical, unlabored. ABSENT: accessory muscle use, rales, rhonchi, tachypnea, wheezes Cardiovascular exam: PRESENT: RRR, +S1, +S2 GI/Abdominal exam: PRESENT: normal bowel sounds, soft. ABSENT: distended, tenderness Rectal exam: PRESENT: deferred Gentrourinary exam: PRESENT: indwelling catheter Neurological exam: PRESENT: alert, awake, oriented to person, oriented to place, oriented to time, oriented to situation Psychiatric exam: PRESENT: flat affect. ABSENT: agitated, anxious Focused psych exam: ABSENT: delusional, restlessness Results Laboratory Results: 09/07/18 04:31 09/08/18 21:26 09/08/18 21:26 Sodium 137.4 Potassium 4.0 Chloride 105 Carbon Dioxide 26 Anion Gap 6 BUN 14 Creatinine 0.56 Est GFR ( Amer) > 60 Est GFR (Non-Af Amer) > 60 Glucose 100 Calcium 9.2 Impressions: Chest X-Ray 09/03/18 19:33 IMPRESSION: No evidence of acute cardiopulmonary disease. Age-indeterminate left-sided fractures, some of which are chronic. Hip X-Ray 09/05/18 00:00 IMPRESSION: SATISFACTORY POSTOPERATIVE LEFT HIP. Transfer Plan - Disposition Transfer Plan: Transfer to [facility] - Time Spent with Patient Time spent with patient: Greater than 30 Minutes Qualifiers - * PATIENT BEING DISCHARGED WITH ANY OF THE FOLLOWING DIAGNOSIS: No Acute Heart Failure - Is this a Heart Failure Patient?: No LVEF < 40%?: No- if no continue to question #3 3. Anticoagulant therapy for permanect/persistent/paraoxysmal Afib or Aflutter: N/A Plan Discharge Plan: Transferred to [facility] Time Spent: Greater than 30 Minutes
== END 2018-09-09 19:38 | DRG 470 ==
LOC: ER 17:13 → EH 20:26 → 3S 22:38
PROVIDERS: ADMIT Internal Medicine; ATTEND Internal Medicine
PROC: 0SRS0JZ Replacement of Left Hip Joint, Femoral Surface with Synthetic Substitute, Open Approach (ICD-10-PCS; principal; 2018-09-05 12:00)
DX: S72.012A Unspecified intracapsular fracture of left femur, initial encounter for closed fracture (principal); N17.9 Acute kidney failure, unspecified; E87.5 Hyperkalemia; J43.9 Emphysema, unspecified; W18.30XA Fall on same level, unspecified, initial encounter; Y92.000 Kitchen of unspecified non-institutional (private) residence as the place of occurrence of the external cause; F32.9 Major depressive disorder, single episode, unspecified; E83.52 Hypercalcemia; F17.210 Nicotine dependence, cigarettes, uncomplicated; I10 Essential (primary) hypertension; D64.9 Anemia, unspecified; M19.90 Unspecified osteoarthritis, unspecified site; Z86.718 Personal history of other venous thrombosis and embolism; R63.4 Abnormal weight loss; G89.29 Other chronic pain; M54.6 Pain in thoracic spine; Z90.49 Acquired absence of other specified parts of digestive tract; Z82.49 Family history of ischemic heart disease and other diseases of the circulatory system; Z79.899 Other long term (current) drug therapy; Z79.82 Long term (current) use of aspirin
CPT/HCPCS: 01210; 36415; 51702; 71045; 80048; 80053; 81001; 82397; 82652; 83970; 85025; 85027; 85610; 85730; 86850; 86900; 86901; 88305; 88311; 93005; 93010; 94799; 96374; 99285; C1776; C9290; J0690; J1100; J1170; J1644; J1940; J2250; J2270; J2405; J2550; J2704; J3010; J3490; J7030; J7060; J7620; S0119